=== PATIENT | male | born 1945 | race Caucasian/White ===

== ENCOUNTER 2019-12-21 07:37 | Inpatient (IN) | payer MEDICARE, OTHER, SELFPAY ==
[2019-12-21] VITALS (14 sets, daily range): BP systolic 91–128; BP diastolic 55–82; PULSE 64–98; RESP 12–22; TEMP 36.4–37.1; O2SAT 91–98; BMI 28.0
--- NOTE | 2019-12-21 07:45 | CTR_ITS ---
PROCEDURE INFORMATION: Exam: CT Abdomen And Pelvis With Contrast Exam date and time: 12/21/2019 8:14 AM Age: 74 years old Clinical indication: Other: Gi bleed; Prior surgery; Surgery date: 6+ months; Surgery type: Sigmoid TECHNIQUE: Imaging protocol: Computed tomography of the abdomen and pelvis with intravenous contrast. Radiation optimization: All CT scans at this facility use at least one of these dose optimization techniques: automated exposure control; mA and/or kV adjustment per patient size (includes targeted exams where dose is matched to clinical indication); or iterative reconstruction. Contrast material: VISI 320; Contrast volume: 95 ml; Contrast route: RT AC; COMPARISON: No relevant prior studies available. RADIATION DOSE METRICS: Total DLP: 784.06 mGy-cm FINDINGS: Lungs: Calcified granuloma left upper lobe. 2 mm nodule or branching vessel lateral left lower lung series 2, image 13. This resides at the margin the oblique fissure. Pleural space: Minor pleural parenchymal scarring in the lower lungs. Linear scarring or atelectasis right lower lobe. Minimal interstitial scarring right middle lobe. Punctate pleural based nodular density left lower lobe laterally series 2, image 14. Liver: 0.9 cm hypodensity left hepatic lobe. Gallbladder and bile ducts: Normal. No calcified stones. No ductal dilation. Pancreas: Normal. No ductal dilation. Spleen: Normal. No splenomegaly. Adrenals: Normal. No mass. Kidneys and ureters: Cyst left kidney measures 2.4 cm. Stomach and bowel: Surgical changes at the level of the cecum. Colonic diverticulosis. Suggestion of wall thickening and incomplete distension of the large portion and the majority of the transverse colon with possible component of wall thickening of portions of left colon proximally near the splenic flexure. Appendix: The appendix is not visualized. Intraperitoneal space: Unremarkable. No free air. No significant fluid collection. Vasculature: Prominent atherosclerotic vascular calcification distribution of coronary arteries. Possible coronary stent. Lymph nodes: There are likely a few small subcentimeter lymph nodes low within the pelvis. Bladder: See Reproductive finding. Reproductive: Prostate gland enlargement with slight heterogeneity measures 5.1 x 6.1 cm. Prostate gland extends impression or extension at the bladder base. A lobular area of intravesical soft tissue and slightly nodular abnormality measures 3.7 x 1.5. This could be due to superior prostate gland impression or extension versus intra bladder mucosal abnormality or mass. Bones/joints: Degenerative change of the spine. Soft tissues: Minimal umbilical hernia containing fatty omentum. CT/CT abdomen pelvis w con* [id number] IMPRESSION: 1. Wall thickening with nondistention and loss of haustral pattern of the entire transverse colon and splenic flexure which could be suggestive of nonspecific colitis. 2. Colonic diverticulosis with no definite findings to suggest diverticulitis. 3. Surgical change at the level of the cecum with nonvisualization of the appendix. 4. Prostate gland enlargement. Possible prostate gland impression or extension at the bladder base versus intravesical mucosal abnormality or less likely bladder neoplasm. Correlate with genitourinary consultation. 5. Cyst left kidney.No further workup recommended. 6. Punctate nodular densities left lower lobe.For patients at low risk (minimal or absent history of smoking and of other known risk factors), no routine follow-up is indicated. For patients at high risk (history of smoking or of other known risk factors), consider optional CT at 12 months. (Fred et al., Fleischner Society, 2017) 7. Hypodensity left hepatic lobe.In a low-risk patient, this lesion is most likely to be benign and no further follow-up is recommended. In a high-risk patient, recommend follow-up MRI in 3-6 months (or earlier if warranted by the patient's specific clinical circumstances). Radiation Dose CTDIVOL = (mGy): DLP = 784.06 (mGy-cm)
--- NOTE | 2019-12-21 07:46 | ECG_ITS ---
Measurements Intervals [place] Rate: 63 P: 29 LA: 243 QRS: -11 QRSD: 98 T: 139 QT: 434 QTc: 446 SINUS RHYTHM WITH FIRST DEGREE AV BLOCK MODERATE T-WAVE ABNORMALITY, CONSIDER LATERAL ISCHEMIA No previous ECG available for comparison Electronically Signed On 12-22-2019 20:03:09 CDT by Patsy Leon M.D. [id number]
--- NOTE | 2019-12-21 07:47 | W.ED.GENADLT ---
HPI - General Adult General: Chief complaint: General Medical Stated complaint: GI BLEED Time Seen by Provider: 12/21/19 07:44 Review of Systems General: Reports: 10 or more systems reviewed and unremarkable except in HPI and below GI: Reports: hematochezia PFS ED PFSH: Social History Smoking and tobacco status: never smoked Physical Exam HENMT: HEAD & SCALP: laceration (2.5cm superficial lac to left forehead) Neck/C-Spine: COMMON NORMALS: full ROM, no lymphadenopathy, supple, no meningeal signs and no JVD Resp: COMMON NORMALS: normal respiratory effort, No retractions, No use of accessory muscles and clear to auscultation bilaterally AUSCULTATION: clear to auscultation bilaterally Cardio: COMMON NORMALS: no JVD, regular rate and regular rhythm RATE: regular rate RHYTHM: regular rhythm Neuro: MENINGEAL SIGNS: Yes no meningeal signs Skin: GENERAL SKIN EXAM: pallor Course Vital Signs: Vital signs: Vital Signs Temperature 97.6 F 12/21/19 07:44 Pulse Rate 70 12/21/19 07:44 Respiratory Rate 22 H 12/21/19 07:44 Blood Pressure 107/73 12/21/19 07:44 Pulse Oximetry 95 12/21/19 07:44 [facility] - General Adult Lab Data: Labs: Lab Results 12/21/19 12/21/19 12/21/19 Range/Units 07:25 07:25 07:25 WBC 7.7 (4.0-10.0) 10^3/ uL RBC 4.10 (4.1-5.3) 10^6/u L Hgb 12.5 (11.7-16.6) g/dL Hct 37.6 L (42.0-52.0) % MCV 91.7 (80-94) fL MCH 30.5 (28.0-34.0) pg MCHC 33.2 (30.0-36.0) g/dL RDW 13.0 (12.1-15.1) % Plt Count 197 (130-400) 10^3/c mm MPV 10.4 (7.4-10.4) fL Neut % (Auto) 58.5 % Lymph % (Auto) 29.6 % Atlantic % (Auto) 9.5 % Eos % (Auto) 1.6 % Baso % (Auto) 0.5 % Neut # (Auto) 4.5 (1.8-7.7) 10^3/u L Lymph # (Auto) 2.3 (0.8-4.8) 10^3/u L Atlantic # (Auto) 0.7 (0.2-0.9) 10^3/u L Eos # (Auto) 0.1 (0.0-0.8) 10^3/u L Baso # (Auto) 0.0 (0.0-0.1) 10^3/u L Nucleated RBC % (a uto) 0 % Nucleated RBCs # 0.0 /100WBC PT 13.50 H (10.5-13.3) SECO NDS INR 1.00 (0.8-1.2) APTT 24.3 (23.9-36.7) SECO NDS Sodium 138 (136-145) mmol/L Potassium 4.3 (3.5-5.1) mmol/L Chloride 104 (98-107) mmol/L Carbon Dioxide 24 (22-29) mmol/L Anion Gap 14.3 (5-19) BUN 20 (8-23) mg/dL Creatinine 1.4 H (0.7-1.2) mg/dL Glucose 146 H (65-115) mg/dL Calculated Osmolal ity 285 (285-295) mOsm/k g Lactate (0.5-2.2) mmol/L Calcium 8.1 L (8.5-10.5) mg/dL Total Bilirubin 0.5 (0.15-1.2) mg/dL AST 19 (0-40) U/L ALT 20 (0-41) U/L Alkaline Phosphata se 67 (40-130) IU/L Troponin T Baselin e (0-15) ng/mL Total Protein 5.3 L (6.6-8.7) g/dL Albumin 3.8 (3.5-5.2) g/dL Globulin 1.5 (1.3-4.6) g/dL Blood Type Rho(D) Type Antibody Screen 12/21/19 12/21/19 12/21/19 Range/Units 07:25 08:15 08:15 WBC (4.0-10.0) 10^3/ uL RBC (4.1-5.3) 10^6/u L Hgb (11.7-16.6) g/dL Hct (42.0-52.0) % MCV (80-94) fL MCH (28.0-34.0) pg MCHC (30.0-36.0) g/dL RDW (12.1-15.1) % Plt Count (130-400) 10^3/c mm MPV (7.4-10.4) fL Neut % (Auto) % Lymph % (Auto) % Atlantic % (Auto) % Eos % (Auto) % Baso % (Auto) % Neut # (Auto) (1.8-7.7) 10^3/u L Lymph # (Auto) (0.8-4.8) 10^3/u L Atlantic # (Auto) (0.2-0.9) 10^3/u L Eos # (Auto) (0.0-0.8) 10^3/u L Baso # (Auto) (0.0-0.1) 10^3/u L Nucleated RBC % (a uto) % Nucleated RBCs # /100WBC PT (10.5-13.3) SECO NDS INR (0.8-1.2) APTT (23.9-36.7) SECO NDS Sodium (136-145) mmol/L Potassium (3.5-5.1) mmol/L Chloride (98-107) mmol/L Carbon Dioxide (22-29) mmol/L Anion Gap (5-19) BUN (8-23) mg/dL Creatinine (0.7-1.2) mg/dL Glucose (65-115) mg/dL Calculated Osmolal ity (285-295) mOsm/k g Lactate 2.4 H (0.5-2.2) mmol/L Calcium (8.5-10.5) mg/dL Total Bilirubin (0.15-1.2) mg/dL AST (0-40) U/L ALT (0-41) U/L Alkaline Phosphata se (40-130) IU/L Troponin T Baselin e 8 (0-15) ng/mL Total Protein (6.6-8.7) g/dL Albumin (3.5-5.2) g/dL Globulin (1.3-4.6) g/dL Blood Type O Positive Rho(D) Type Positive Antibody Screen Negative Discharge Plan Discharge Patient Disposition: Admitted As Inpatient Clinical Impression: Acute GI bleeding Condition: Fair Coding Level of Care Code ED Cardiac Care Unit Nurse for Tha Fwd Exam Detailed
[2019-12-21 07:55] LABS: Basophils % 0.5 %; Eosinophils # 0.1 10^3/uL (0.0-0.8); Eosinophils % 1.6 %; Hematocrit 37.6 % (42.0-52.0); Hemoglobin 12.5 g/dL (11.7-16.6); Lymphocytes # 2.3 10^3/uL (0.8-4.8); Lymphocytes % 29.6 %; Mean Corpuscular HGB Conc 33.2 g/dL (30.0-36.0); Mean Corpuscular Hemoglobin 30.5 pg (28.0-34.0); Mean Corpuscular Volume 91.7 fL (80-94); Mean Platelet Volume 10.4 fL (7.4-10.4); Monocytes # 0.7 10^3/uL (0.2-0.9); Monocytes % 9.5 %; Neutrophils # 4.5 10^3/uL (1.8-7.7); Neutrophils % 58.5 %; Nucleated Red Blood Cells % 0 %; Platelet Count 197 10^3/cmm (130-400); White Blood Count 7.7 10^3/uL (4.0-10.0)
[2019-12-21 08:04] LABS: Partial Thromboplastin Time 24.3 SECONDS (23.9-36.7)
[2019-12-21 08:08] LABS: Alanine Aminotransferase 20 U/L (0-41); Albumin Level 3.8 g/dL (3.5-5.2); Alkaline Phosphatase 67 IU/L (40-130); Anion Gap 14.3 (5-19); Aspartate Amino Transferase 19 U/L (0-40); Blood Urea Nitrogen 20 mg/dL (8-23); Calcium 8.1 mg/dL (8.5-10.5); Carbon Dioxide 24 mmol/L (22-29); Chloride 104 mmol/L (98-107); Globulin 1.5 g/dL (1.3-4.6); Glucose 146 mg/dL (65-115); Osmolality Calculated 285 mOsm/kg (285-295); Potassium 4.3 mmol/L (3.5-5.1); Sodium 138 mmol/L (136-145); Total Bilirubin 0.5 mg/dL (0.15-1.2); Total Protein 5.3 g/dL (6.6-8.7)
[2019-12-21 08:10] LABS: Troponin(5th) Baseline 8 ng/mL (0-15)
[2019-12-21 08:33] LABS: Lactate (Lactic Acid level) 2.4 mmol/L (0.5-2.2)
[2019-12-21] MEDS: iodixanol 320 mg/mL 100mL Btl IV (08:43)
--- NOTE | 2019-12-21 08:58 | CTR_ITS ---
PROCEDURE INFORMATION: Exam: CT Head Without Contrast Exam date and time: 12/21/2019 9:15 AM Age: 74 years old Clinical indication: Injury or trauma; Fall; Additional info: Near syncope from gi bleed TECHNIQUE: Imaging protocol: Computed tomography of the head without contrast. Radiation optimization: All CT scans at this facility use at least one of these dose optimization techniques: automated exposure control; mA and/or kV adjustment per patient size (includes targeted exams where dose is matched to clinical indication); or iterative reconstruction. COMPARISON: No relevant prior studies available. RADIATION DOSE METRICS: Total DLP: 869.61 mGy-cm FINDINGS: Brain: Likely chronic left caudate head lacunar infarction. Moderate hypoattenuating foci are noted in the central cerebral, posterior superior periatrial and anterior lateral ventricular periventricular white matter bilaterally. No intracranial hemorrhage. No mass or acute cortical infarction identified. Ventricles: Prominence of the subarachnoid spaces is consistent with the patient's age of 74 years. Bones/joints: Unremarkable. No acute fracture. Sinuses: A cyst/polyp is present in the anterior superior right maxillary sinus. Mastoid air cells: Visualized mastoid air cells are well aerated. Soft tissues: Unremarkable. Vasculature: Atherosclerotic calcifications are present involving the carotid artery siphons bilaterally and the right vertebral artery. Atherosclerotic calcifications are present involving the carotid artery siphons bilaterally. Other findings: Intravascular contrast demonstrated from recent prior abdominal/pelvic CT. CT/CT head wo con* [id number] IMPRESSION: 1. 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 2. Age appropriate supratentorial and infratentorial atrophy. 3. Moderate chronic white matter microvascular ischemic disease. 4. No acute intracranial injury identified. Radiation Dose CTDIVOL = (mGy): DLP = 869.61 (mGy-cm)
--- NOTE | 2019-12-21 09:46 | ECG_ITS ---
Measurements Intervals [place] Rate: 61 P: 42 MI: 231 QRS: -5 QRSD: 97 T: 125 QT: 447 QTc: 454 SINUS RHYTHM WITH FIRST DEGREE AV BLOCK MODERATE T-WAVE ABNORMALITY, CONSIDER LATERAL ISCHEMIA [-0.1+ mV T WAVE IN I/aVL/V5/V6] No previous ECG available for comparison Electronically Signed On 12-21-2019 9:46:02 CDT by Patsy Leon M.D. [id number]
--- NOTE | 2019-12-21 10:04 | P.HP_ITS ---
Providers/Chief Complaint Chief Complaint: GI BLEED History of Present Illness Lester Junior Dr. 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 Patient states since yesterday he has had around 4-5 episodes of bowel movements mixed with bright red blood. Bowel movements are mixed with blood with large bowel movement today morning. After the bowel movement when he was trying to get up from the commode he felt cold clammy had presyncopal event and hit his head at the sink. He denies of having any loss of consciousness. Prior to the event he denies of having any aura, palpitations, chest pain, dizziness, diaphoresis. Patient denies of having any abdominal pain, nausea, vomiting, dyspepsia. He denies of having bleeding from anywhere else. 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 At baseline he denies of having any anginal-like symptoms. He denies of having any chest pain or shortness of breath at rest or on exertion. He denies of excessive NSAID use. He is on aspirin and Plavix. He states he is on both medications as per his own choice. He denies of having any flulike symptoms, cough, sick contacts, recent travels, hiking. He states he has had around 2 or 3 tick bites in the season with last tick bite on 3 weeks ago but denies of having any rash associated with this tick bite. As per the patient he had colonoscopy around 2 years ago which showed benign polyps and were excised. He states he vaguely remembers of having a colonoscopy around 8 years ago when there was suspicion of a mass in the cecum which was later turned out to be benign. On examination patient is lying comfortably in bed with hemodynamic stable denying any active symptoms at present. Review of Systems Const: Denies: fever(s), chills, body aches, change in appetite, malaise, night sweats, diaphoresis, change in sleep pattern, daytime sleepiness or snoring Eyes: Denies: change in vision, blurry vision, photophobia, eye discomfort or eye discharge ENMT: Denies: throat pain, enlarged tonsils, hoarseness, mouth pain, oral sores, dry mouth, tinnitus, nasal congestion or post nasal drip Card: Reports: lightheadedness and pre-syncope; Denies: chest pain, palpitations, irregular heart rhythm, edema, swelling of f eet/ankles, syncope, dyspnea on exertion, orthopnea, leg pain with exertion or acrocyanosis Resp: Denies: dyspnea, productive cough, non-productive cough, wheezing, stridor, pain on inspiration, change in phlegm color, hemoptysis or chest conges tion GI: Denies: abdominal pain, nausea, vomiting, hematemesis, coffee ground emesis, dysphagia, heartburn, diarrhea, constipation, bloating, GI cramping, change in bowel habits, pain on defecation, hematochezia or melena : Denies: flank pain, difficulty urinating, dysuria, urinary frequency, urinary urgency, urinary hesitancy, urinary dribbling, difficulty starting urination, change in urine stream, nocturia or hematuria Musc: Denies: neck pain, back pain, extremity pain, joint pain, joint swelling, joint redness, joint stiffness or limited range of motion Neuro: Denies: headache(s), numbness in extremities, weakness in extremities, sensory changes, lack of coordination, difficulty walking, frequent falls, dizziness, vertigo, confusion, Slurred speech present, difficulty communicating thoughts or seizure-like activity Psych: Denies: anxiety, depression, mood swings, panic attacks, hopelessness or irritability Endo: Denies: polyuria, polydipsia, tired all the time, cold intolerance, excessive sweating, flushing or heat intolerance Ryan/Lymph: Denies: easy bruising or easy bleeding All/Imm: Denies: tongue swelling, facial swelling or acute wheezing Medications/Allergies Home Medications Medication Instructions Recorded Confirmed Last Taken Type amlodipine 5 mg tablet 5 mg PO DAILY 90 Days #90 tab 09/23/19 12/21/19 12/20/19 Rx atorvastatin 20 mg tablet 20 mg PO DAILY 90 Days #90 tab 09/23/19 12/21/19 12/20/19 Rx clopidogrel 75 mg tablet 75 mg PO DAILY 90 Days #90 tab 09/23/19 12/21/19 12/20/19 Rx aspirin 81 mg PO DAILY 12/21/19 12/21/19 12/20/19 History metoprolol tartrate 50 mg PO BID 12/21/19 12/21/19 12/20/19 History Allergies Allergy/AdvReac Type Severity Reaction Status Date / Time No Known Allergies Allergy Unverified 12/21/19 07:46 PFSH Acute PFSH: Medical History (Updated 12/21/19 @ 14:15 by Kennedy Mcclure MD) CAD (coronary artery disease) Dyslipidemia Heart attack Hypertension Old inferior wall myocardial infarction Surgical History (Updated 12/21/19 @ 14:15 by Kennedy Mcclure MD) History of colon surgery History of coronary artery stent placement Hx of appendectomy S/P right coronary artery (RCA) stent placement Social History (Updated 12/21/19 @ 14:16 by Kennedy Mcclure MD) Smoking and tobacco status: never smoked Alcohol intake: never Substance/Drug Use: never Household members: spouse Housing: House Highest education level completed: Professional Degree (MD, DO, JUDITH, DVM, DDS, DPM, etc) Vitals/I&O/Wt Last Vital Signs Temp 97.6 F 12/21/19 07:44 Pulse 70 12/21/19 07:44 Resp 22 H 12/21/19 07:44 BP 107/73 12/21/19 07:44 Pulse Ox 95 12/21/19 07:44 Weight last 48 hrs Weight 86.183 kg Physical Exam Narrative: EXAM NARRATIVE: General: No acute distress, AO x3 HEENT: PERRLA, pupils bilaterally equal and reactive Chest: Normal vesicular breath sounds, no added sounds, equal good air entry bilaterally CVS: S1-S2 regular, no murmurs, no tachycardia, no gallops, no rubs Abdomen: Soft, mild tenderness in periumbilical region, no guarding no rigidity , no organomegaly, bowel sounds present Neuro: No focal deficits, no facial deformity, AO x3, power 5/5 in all limbs Data : 12/21/19 07:25 12/21/19 07:25 A&P Assessment and plan (1) Pre-syncope: Status: Acute (2) Acute GI bleeding: Status: Acute (3) CAD (coronary artery disease): Status: Acute (4) Dyslipidemia: Status: Acute Additional A&P Information 74-year-old gentleman with past medical history of inferior wall AZ post stenting to RCA in 2011 on dual antiplatelets presented to the ER today after having 5-6 episodes of bowel movements mixed with bright red blood leading to presyncope. Acute GI bleed: Most likely lower GI. Hemoglobin is stable at 12.6 with baseline hemoglobin seems to be around more th an 13. Type and screen. Check iron panel, vitamin B12, folate levels, lactate levels. Surgery has been consulted by ER. We will withhold on aspirin and Plavix for now. N.p.o. for now. Check CT abdomen and pelvis to rule out colitis, mass. Check hemoglobin every 12 hourly. Presyncope: Most likely due to acute volume loss from GI bleed. But given his history of inferior wall AZ and recent head injury cannot rule out arrhythmias or stroke. Now patient does not have any neurological signs on examination. Admit to telemetry. Check echocardiogram, troponins and cycle troponins. Check CT head without contrast to rule out any bleed. Fall precautions. For now we will hold off on amlodipine. History of CAD: We will hold off on aspirin and Plavix due to GI bleed. Continue with atorvastatin, low-dose of metoprolol to avoid reaction to tachycardia. Check HbA1c, lipid panel, TSH. Full code. N.p.o. SCDs for DVT prophylaxis no therapeutic DVT prophylaxis due to GI bleed. Attestations Medical Necessity Statement*: More than 2 midnights for acute GI bleed, presyncope Time Spent in Patient Care: Greater than 35 minutes Coding Level of Care Code Acute Professional Caster for Tha Garcia Diagnoses Pre-syncope R55 Acute GI bleeding K92.2 CAD (coronary artery disease) I25.10 Dyslipidemia E78.5
--- NOTE | 2019-12-21 10:09 | USCV_ITS ---
Lester Junior Dr. Age: 74 Gender: M : 1945 Exam Date: 12/21/2019 11:38 Ordering Phys: Kennedy Mcclure MD Technologist: Renee Hastings Exam Location: [facility] [place] Indication: PULM HTN BP: 114 / 65 HR: 75 Rhythm: Sinus Technical Quality: Suboptimal MEASUREMENTS (Male / Female) Normal Values 2D ECHO LV Diastolic Diameter PLAX 4.4 cm 4.2 - 5.9 / 3.9 - 5.3 cm LV Systolic Diameter PLAX 3.0 cm LV Chamber Size 3.7 cm IVS Diastolic Thickness 1.0 cm 0.6 - 1.0 / 0.6 - 0.9 cm IVS Systolic Thickness 1.3 cm LVPW Diastolic Thickness 2.4 cm 0.6 - 1.0 / 0.6 - 0.9 cm LVPW Systolic Thickness 2.3 cm RV Chamber Size 2.2 cm LVOT Diameter 2.1 cm LV Ejection Fraction 2D Teich 60.4 % LV Ejection Fraction MOD 2C 66.3 % LV Ejection Fraction 2C AL 66.3 % LA Diameter 4.6 cm LA Width 2.8 cm LA Height 4.5 cm RA Width 2.7 cm RA Height 4.2 cm Aorta at Sinotubular Diameter 3.2 cm M-MODE LV Diastolic Diameter MM 5.4 cm 4.2 - 5.9 / 3.9 - 5.3 cm LV Systolic Diameter MM 2.9 cm LV Ejection Fraction MM Teich 76.3 % IVS Diastolic Thickness MM 0.9 cm 0.6 - 1.0 / 0.6 - 0.9 cm IVS Systolic Thickness MM 1.1 cm LVPW Diastolic Thickness MM 0.9 cm 0.6 - 1.0 / 0.6 - 0.9 cm LVPW Systolic Thickness MM 1.6 cm Aortic Annulus Diameter 2.9 cm LA Ao Ratio MM 1.6 MV E Point Septal Separation 1.0 cm DOPPLER AV Peak Velocity 150.0 cm/s LVOT Peak Velocity 112.0 cm/s AV Area Cont Eq vti 3.1 cm squared AV Area Cont Eq pk 2.5 cm squared MV Area PHT 3.1 cm squared Mitral E to A Ratio 0.7 MV E' Velocity 12.0 cm/s Mitral E to MV E' Ratio 5.5 Mitral E to LV E' Lateral Ratio 4.9 Mitral E to LV E' Septal Ratio 6.2 TR Peak Velocity 213.0 cm/s TR Peak Gradient 18.1 mmHg TV Peak E Velocity 48.0 cm/s Right Atrial Pressure 3.0 mmHg Pulmonary Artery Systolic Pressu 21.1 mmHg PV Peak Velocity 105.0 cm/s RV Acceleration Time 0.2 s RV Ejection Time 0.3 s RV AcT/ET 0.5 FINDINGS Left Ventricle Normal left ventricular size, systolic function and wall thickness, with no regional wall motion abnormalities. Grade I/IV diastolic dysfunction (abnormal relaxation filling pattern), normal to mildly elevated filling pressures. Left ventricular ejection fraction is estimated at 60 %. Right Ventricle Normal right ventricular size and systolic function. Normal right ventricular systolic pressure. Right Atrium The right atrium is normal in size. Left Atrium Mildly increased left atrial size. Mitral Valve Structurally normal mitral valve without significant stenosis or prolapse. There is no mitral regurgitation. Aortic Valve Structurally normal aortic valve without significant sclerosis or stenosis. There is no aortic regurgitation. Tricuspid Valve Structurally normal tricuspid valve. Trace tricuspid valve regurgitation. Pulmonic Valve Pulmonic valve not well visualized. Pericardium Normal pericardium without effusion. Aorta Normal ascending aorta dimension. CONCLUSIONS Normal left ventricular size, systolic function and wall thickness, with no regional wall motion abnormalities. Grade I/IV diastolic dysfunction (abnormal relaxation filling pattern), normal to mildly elevated filling pressures. Left ventricular ejection fraction is estimated at 60 %. Mildly increased left atrial size. There are no prior echocardiogram studies to compare. Dr. Alirio Miranda MD (Electronically Signed) Final Date: 22 Dec 2019 09:02 S
[2019-12-21 10:25] LABS: Troponin 5 2HR 7.97 ng/mL (0-15)
[2019-12-21 10:53] LABS: Troponin 5 2HR Delta -0.03 ABS# (0-10)
[2019-12-21 11:06] LABS: NT Pro B Type Natriuretic Pept 64 pg/mL (0-125); Thyroid Stimulating Hormone 5.65 uIU/mL (0.27-4.20)
[2019-12-21 11:41] LABS: Lactic Sepsis W/Reflex 1.7 mmol/L (0.5-2.2)
[2019-12-21] MEDS: sodium chloride 0.9% 1,000 ML 100 ML IV (12:18)
[2019-12-21] MEDS: pantoprazole 40 mg SDV IVP ×2 (12:18→21:46)
--- NOTE | 2019-12-21 12:54 | P.CONIM_ITS ---
Providers/Reason For Consult Consulting Physican/Specialty*: Dr. 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 Patient states that he also bumped his head after he felt dizzy. Patient denies any abdominal pain, nausea, vomiting, constipation or diarrhea. No similar episodes in the past. Had a colonoscopy 2 years ago when polyps were removed. Patient states that he also had another colonoscopy 8 to 10 years ago the cecum looked abnormal and he subsequently underwent a laparoscopic cecectomy. Since this morning he has not had any further bloody bowel movements. Review of Systems General: Reports: 10 or more systems reviewed and unremarkable except in HPI and below Meds/Allergies Home Medications and Allergies Home Medications Medication Instructions Recorded Confirmed Last Taken Type amlodipine 5 mg tablet 5 mg PO DAILY 90 Days #90 tab 09/23/19 12/21/19 12/20/19 Rx atorvastatin 20 mg tablet 20 mg PO DAILY 90 Days #90 tab 09/23/19 12/21/19 12/20/19 Rx clopidogrel 75 mg tablet 75 mg PO DAILY 90 Days #90 tab 09/23/19 12/21/19 12/20/19 Rx aspirin 81 mg PO DAILY 12/21/19 12/21/19 12/20/19 History metoprolol tartrate 50 mg PO BID 12/21/19 12/21/19 12/20/19 History Allergies Allergy/AdvReac Type Severity Reaction Status Date / Time No Known Allergies Allergy Unverified 12/21/19 07:46 Current Medications Current Medications Generic Name Dose Route Start Last Admin Trade Name Freq PRN Reason Stop Dose Admin Sodium Chloride 1,000 mls @ 100 mls/hr 12/21/19 09:00 12/21/19 12:18 Sodium Chloride 0.9% IV 100 mls/hr .Q10H CED Administration Pantoprazole Sodium 40 mg 12/21/19 10:27 12/21/19 12:18 Protonix IVP 40 mg Q12H CED Administration PFSH Acute PFSH: Medical History CAD (coronary artery disease) Dyslipidemia Heart attack Hypertension Old inferior wall myocardial infarction Surgical History History of colon surgery History of coronary artery stent placement Hx of appendectomy S/P right coronary artery (RCA) stent placement Social History Smoking and tobacco status: never smoked Alcohol intake: never Substance/Drug Use: never Household members: spouse Housing: House Highest education level completed: Professional Degree (MD, DO, JUDITH, DVM, DDS, DPM, etc) Vitals/I&O/Wt Last Vital Signs Temp 98.7 F 12/21/19 12:00 Pulse 74 12/21/19 12:00 Resp 16 12/21/19 12:00 BP 110/67 12/21/19 12:00 Pulse Ox 97 12/21/19 12:00 Weight last 48 hrs Weight 190 lb Physical Exam Narrative: EXAM NARRATIVE: HEENT: Normocephalic Eye: Sclera /conjunctiva normal Respiratory and chest: Bilateral clear breath sounds on auscultation Cardiovascular: Normal S1 and S2 heart sounds Abdomen: Soft to palpation Neurological: Oriented to place person and time Skin: Intact, no lesions appreciated on gross exam A&P Assessment and plan (1) Acute GI bleedin-year-old gentleman who is currently on aspirin and Plavix for coronary artery stents. Patient has painless hematochezia scan showed suspected colitis and diverticulosis but no evidence of active bleed stable and his hemoglobin is 12. Serial hemoglobin checks Okay to have ice chips If he remains stable and his hemoglobin does not drop significantly then he will need to stop his aspirin and Plavix for a week with a plan for an outpatient colonoscopy in about about 4 weeks given his history of colitis. If he has significant drop in hemoglobin then we will plan for EGD colonoscopy during his inpatient stay Status: Acute Coding Level of Care Code Acute Supervisor Instrument Maintenance for [facility] Diagnoses Acute GI bleeding K92.2
--- NOTE | 2019-12-21 13:46 | ECG_ITS ---
Measurements Intervals [place] Rate: 79 P: 35 NE: 211 QRS: -17 QRSD: 99 T: 90 QT: 403 QTc: 464 SINUS RHYTHM WITH FIRST DEGREE AV BLOCK NONSPECIFIC T-WAVE ABNORMALITY Compared to ECG 12/21/2019 09:51:03 Possible ischemia no longer present T-wave abnormality still present Electronically Signed On 12-22-2019 20:24:46 CDT by Patsy Leon M.D. [email or web address]
[2019-12-21] MEDS: cefTRIAXone 1,000 MG in sodium chloride 0.9% (plus) 50 ML 100 MG IV (13:51)
[2019-12-21] MEDS: metroNIDAZOLE IV 500 MG/100 ML PREMIX 100 MG IV ×2 (13:52→21:46)
[2019-12-21 14:14] LABS: Troponin 5 6HR 6.94 ng/mL (0-15)
[2019-12-21 14:24] LABS: Troponin 5 6HR Delta -1.06 ng/L (0-12)
[2019-12-21 14:35] LABS: Iron 130 ug/dL (59-158); Total Iron Binding Capacity 213 mcg/dl; Unsaturated Iron Binding 83 ug/dL (112-347)
[2019-12-21 14:45] LABS: Free T4 Free Thyroxine 0.92 ng/dL (0.82-1.77); T3 Free 2.5 PG/ML (2.0-4.4)
[2019-12-21] MEDS: sodium chloride 0.9% 1,000 ML 75 ML IV (15:58)
[2019-12-22] VITALS (56 sets, daily range): BP systolic 109–136; BP diastolic 65–90; PULSE 77–127; RESP 14–27; TEMP 36.6–36.7; O2SAT 91–98
[2019-12-22] MEDS: sodium chloride 0.9% 1,000 ML 75 ML IV (00:50)
--- NOTE | 2019-12-22 01:21 | PC.NURSE ---
Decreased O2 sat During sleep 02 saturation 85-88% RA. Pt placed on 3L NC to maintain sats >92%.
[2019-12-22] MEDS: metroNIDAZOLE IV 500 MG/100 ML PREMIX 100 MG IV ×2 (05:01→12:16)
[2019-12-22 05:06] LABS: Basophils # 0.1 10^3/uL (0.0-0.1); Basophils % 0.9 %; Eosinophils # 0.1 10^3/uL (0.0-0.8); Eosinophils % 1.6 %; Hematocrit 32.9 % (42.0-52.0); Lymphocytes % 17.5 %; Mean Corpuscular HGB Conc 33.4 g/dL (30.0-36.0); Mean Corpuscular Hemoglobin 30.6 pg (28.0-34.0); Mean Corpuscular Volume 91.4 fL (80-94); Mean Platelet Volume 10.4 fL (7.4-10.4); Monocytes # 0.5 10^3/uL (0.2-0.9); Monocytes % 8.8 %; Neutrophils # 4.1 10^3/uL (1.8-7.7); Nucleated Red Blood Cells % 0 %; Platelet Count 145 10^3/cmm (130-400); Red Cell Distribution Width 12.9 % (12.1-15.1); White Blood Count 5.8 10^3/uL (4.0-10.0)
[2019-12-22 05:21] LABS: Alanine Aminotransferase 17 U/L (0-41); Albumin Level 3.5 g/dL (3.5-5.2); Alkaline Phosphatase 69 IU/L (40-130); Anion Gap 13.6 (5-19); Aspartate Amino Transferase 17 U/L (0-40); Blood Urea Nitrogen 14 mg/dL (8-23); Calcium 8.4 mg/dL (8.5-10.5); Carbon Dioxide 23 mmol/L (22-29); Chloride 109 mmol/L (98-107); Globulin 2.1 g/dL (1.3-4.6); Glucose 103 mg/dL (65-115); Osmolality Calculated 290 mOsm/kg (285-295); Phosphorus 2.5 mg/dL (2.5-4.5); Potassium 3.6 mmol/L (3.5-5.1); Sodium 142 mmol/L (136-145); Total Bilirubin 0.5 mg/dL (0.15-1.2); Total Protein 5.6 g/dL (6.6-8.7)
[2019-12-22 05:32] LABS: Chol HDL Ratio 4.34 mg/dL (1.0-5.00); Cholesterol 126 mg/dL (0-200); HDL Cholesterol 29 mg/dL (60-100); LDL Cholesterol Calculated 74 mg/dL (50-129); LDL HDL Ratio 2.55 RATIO (0.00-3.22); Triglycerides 115 mg/dL (0-150); VLDL Cholestrol Calculation 23 mg/dL (0-30)
[2019-12-22] MEDS: metoprolol tartrate 25 mg Tablet PO (09:30)
[2019-12-22] MEDS: pantoprazole 40 mg SDV IVP (09:31)
[2019-12-22] MEDS: atorvastatin 40 mg Tablet 20 MG PO (09:37)
--- NOTE | 2019-12-22 09:52 | PM.PN ---
Subjective Subjective: Interval history: Patient has not had any further bleeding overnight, his hemoglobin is stable. Denies any abdominal pain Vitals/I&O/Wt Last Vital Signs Temp 98.0 F 12/22/19 02:00 Pulse 92 12/22/19 06:10 Resp 16 12/22/19 06:10 BP 122/75 12/22/19 06:10 Pulse Ox 95 12/22/19 06:10 12/21/19 12/22/19 12/22/19 22:59 06:59 14:59 Intake Total 220 / 1468.75 1098.75 / 1468.75 100 / 100 Output Total 425 / 725 300 / 725 Balance -205 / 743.75 798.75 / 743.75 100 / 100 Weight last 48 hrs Weight 189 lb 9.6 oz Weight 190 lb Physical Exam Narrative: EXAM NARRATIVE: Abdomen: Soft Data : 12/22/19 11:55 12/22/19 04:20 Micro: Microbiology 12/22/19 03:20 Stool Lactoferrin - Final Stool Occult Blood (FIT) - Final A&P Assessment and plan (1) Hematochezia: Likely secondary to diverticulosis Patient is stable hemodynamically, no evidence of active bleeding. His hemoglobin is stable DC home today with follow-up in 4 weeks to schedule a colonoscopy Status: Acute Attestations Medical Necessity Statement*: GI bleed Coding Level of Care Code Acute Bedspread Seamer for [facility] Diagnoses Hematochezia K92.1
[2019-12-22 12:05] LABS: Hematocrit 33.2 % (42.0-52.0); Hemoglobin 11.2 g/dL (11.7-16.6)
--- NOTE | 2019-12-22 12:08 | PM.DCS ---
Discharge Providers Date of Admission: 12/21/19 09:45 Date of Discharge: December 22, 2019 Attending Provider at Admission: Kennedy Mcclure MD Attending Provider at Discharge: Kennedy Mcclure MD Consults: Surgery: Dr. Serrano. Diagnoses at Discharge Discharge Diagnosis (1) Acute GI bleeding: Status: Acute (2) CAD (coronary artery disease): Status: Acute (3) Dyslipidemia: Status: Acute (4) Pre-syncope: Status: Acute Reason for Visit Reason for Visit: Reason For Visit: GI BLEED Hospital Course Discharge Summary: Lester Junior is a 74 year old male with past medical history of CAD, inferior wall MT in 2011, post PCI to RCA, dyslipidemia who presented to the ER today after having an episode of presyncope. Patient states since yesterday he has had around 4-5 episodes of bowel movements mixed with bright red blood. Bowel movements are mixed with blood with large bowel movement today morning. After the bowel movement when he was trying to get up from the commode he felt cold clammy had presyncopal event and hit his head at the sink. He denies of having any loss of consciousness. Prior to the event he denies of having any aura, palpitations, chest pain, dizziness, diaphoresis. Patient denies of having any abdominal pain, nausea, vomiting, dyspepsia. He denies of having bleeding from anywhere else. 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 At baseline he denies of having any anginal-like symptoms. He denies of having any chest pain or shortness of breath at rest or on exertion. He denies of excessive NSAID use. He is on aspirin and Plavix. He states he is on both medications as per his own choice. He denies of having any flulike symptoms, cough, sick contacts, recent travels, hiking. He states he has had around 2 or 3 tick bites in the season with last tick bite on 3 weeks ago but denies of having any rash associated with this tick bite. As per the patient last colonoscopy was 2 years ago which had benign polyps. Patient was admitted to the ICU for monitoring and his dual antiplatelets were withheld. He was kept n.p.o. at the start and hemoglobin remained stable. During hospitalization patient did not have any further bloody bowel movements. CT abdomen was done which showed possible nonspecific colitis of transverse colon and splenic flexure. For other causes of presyncope CT head was done which was negative for any acute infarct or bleed, his blood work revealed normal electrolytes. He did not have any arrhythmia on the telemetry. Echocardiogram was done which showed a normal EF with grade 1 diastolic dysfunction with no other WMA. He has been discharged in hemodynamically stable condition on a stable hemoglobin with advised to stop Plavix and hold aspirin for other 7 to 10 days. He is also advised to follow-up with his primary care physician within 7 to 10 days and repeat CBC. He is advised to continue ciprofloxacin and Flagyl for 5 more days to finish a course of antibiotics. He is advised to follow-up with Dr. Serrano in 2 weeks for a possible colonoscopy in 4 weeks. Physical Exam Narrative: EXAM NARRATIVE: General: No acute distress, AO x3 HEENT: PERRLA, pupils bilaterally equal and reactive Chest: Normal vesicular breath sounds, no added sounds, equal good air entry bilaterally CVS: S1-S2 regular, no murmurs, no tachycardia, no gallops, no rubs Abdomen: Soft, mild tenderness in periumbilical region, no guarding no rigidity , no organomegaly, bowel sounds present Neuro: No focal deficits, no facial deformity, AO x3, power 5/5 in all limbs Discharge Data Data Completed and Pending: Completed Studies During Hospitalization Category Date Time Status CT abdomen pelvis w con* [id number] Urge nt Cat Scan 12/21/19 07:[address] head wo con* [id number] Urgent Cat Scan 12/21/19 08:58 Completed CV echo complete* [id number] Routine Ultrasound 12/21/19 10:09 Completed Labs from last 24 hours 12/22/19 12/22/19 12/22/19 11:55 04:20 04:20 WBC 5.8 RBC 3.60 L Hgb 11.2 L 11.0 L Hct 33.2 L 32.9 L MCV 91.4 MCH 30.6 MCHC 33.4 RDW 12.9 Plt Count 145 MPV 10.4 Neut % (Auto) 71.0 Lymph % (Auto) 17.5 [place] % (Auto) 8.8 Eos % (Auto) 1.6 Baso % (Auto) 0.9 Neut # (Auto) 4.1 Lymph # (Auto) 1.0 [place] # (Auto) 0.5 Eos # (Auto) 0.1 Baso # (Auto) 0.1 Nucleated RBC % (a uto) 0 Nucleated RBCs # 0.0 Sodium 142 Potassium 3.6 Chloride 109 H Carbon Dioxide 23 Anion Gap 13.6 BUN 14 Creatinine 1.1 Glucose 103 Calculated Osmolal ity 290 Calcium 8.4 L Phosphorus 2.5 Magnesium 2.0 Iron TIBC % Saturation Unsat Iron Binding Total Bilirubin 0.5 AST 17 ALT 17 Alkaline Phosphata se 69 Troponin I 6 Hour Troponin I Hi Sens Del Total Protein 5.6 L Albumin 3.5 Globulin 2.1 Triglycerides Cholesterol LDL Cholesterol, C alc Total VLDL Cholest nessa HDL Cholesterol LDL/HDL Ratio Cholesterol/HDL Ra maria isabel Free T4 Free T3 12/22/19 12/21/19 12/21/19 04:20 13:48 13:48 WBC RBC Hgb Hct MCV MCH MCHC RDW Plt Count MPV Neut % (Auto) Lymph % (Auto) [place] % (Auto) Eos % (Auto) Baso % (Auto) Neut # (Auto) Lymph # (Auto) [place] # (Auto) Eos # (Auto) Baso # (Auto) Nucleated RBC % (a uto) Nucleated RBCs # Sodium Potassium Chloride Carbon Dioxide Anion Gap BUN Creatinine Glucose Calculated Osmolal ity Calcium Phosphorus Magnesium Iron TIBC % Saturation Unsat Iron Binding Total Bilirubin AST ALT Alkaline Phosphata se Troponin I 6 Hour 6.94 Troponin I Hi Sens Del -1.06 L Total Protein Albumin Globulin Triglycerides 115 Cholesterol 126 LDL Cholesterol, C alc 74 Total VLDL Cholest nessa 23 HDL Cholesterol 29 L LDL/HDL Ratio 2.55 Cholesterol/HDL Ra maria isabel 4.34 Free T4 0.92 Free T3 2.5 12/21/19 07:25 WBC RBC Hgb Hct MCV MCH MCHC RDW Plt Count MPV Neut % (Auto) Lymph % (Auto) [place] % (Auto) Eos % (Auto) Baso % (Auto) Neut # (Auto) Lymph # (Auto) [place] # (Auto) Eos # (Auto) Baso # (Auto) Nucleated RBC % (a uto) Nucleated RBCs # Sodium Potassium Chloride Carbon Dioxide Anion Gap BUN Creatinine Glucose Calculated Osmolal ity Calcium Phosphorus Magnesium Iron 130 TIBC 213 % Saturation 61.0 H Unsat Iron Binding 83 L Total Bilirubin AST ALT Alkaline Phosphata se Troponin I 6 Hour Troponin I Hi Sens Del Total Protein Albumin Globulin Triglycerides Cholesterol LDL Cholesterol, C alc Total VLDL Cholest nessa HDL Cholesterol LDL/HDL Ratio Cholesterol/HDL Ra maria isabel Free T4 Free T3 Vitals: Last Vital Signs Temp 98.0 F 12/22/19 02:00 Pulse 92 12/22/19 06:10 Resp 16 12/22/19 06:10 BP 122/75 12/22/19 06:10 Pulse Ox 95 12/22/19 06:10 Discharge Plan Discharge Patient Disposition: Home, Self-Care Condition: Fair Prescriptions: New ciprofloxacin HCl [Cipro] 500 mg tablet 500 mg PO BID Qty: 10 RF: 0 metronidazole [Flagyl] 500 mg tablet 500 mg PO Q8H 5 Days Qty: 15 RF: 0 pantoprazole [Protonix] 40 mg tablet,delayed release (DR/EC) 40 mg PO BID 10 Days Qty: 20 RF: 0 Continued atorvastatin 20 mg tablet 20 mg PO DAILY 90 Days Qty: 90 RF: 3 metoprolol tartrate 25 mg tablet 50 mg PO BID RF: 0 Held amlodipine 5 mg tablet 5 mg PO DAILY 90 Days Qty: 90 RF: 3 Hold Instructions: Resume on 01/04/20. If blood pressures more than systolic 140/80. aspirin 81 mg Tablet,Delayed Release (Dr/Ec) 81 mg PO DAILY RF: 0 Hold Instructions: Resume on 01/01/20. Discontinued clopidogrel 75 mg tablet 75 mg PO DAILY 90 Days Qty: 90 RF: 3 Discharge Orders: Discharge Order (Routine); Ordered 12/22/19 Ordered By: Kennedy Mcclure Referrals: Miguel A Serrano MD [Physician] - 2 weeks Discharge Diet: GI Soft Discharge Activity: Resume usual activity Activity Restrictions/Additional Instructions: Please hold off on aspirin and Plavix for now. Start aspirin again in 7 to 10 days. Before starting aspirin please check CBC with your primary care physician. Given the GI bleed and colitis on the CT scan please do not take Plavix anymore. For now please do not take amlodipine. Please maintain blood pressure diary. If systolic blood pressures are more than 130/80 take metoprolol and if they continue to remain higher then can resume amlodipine at that point. Please take antibiotics as prescribed for 5 more days to finish a course of antibiotics. Please follow-up with Dr. Serrano in around 2 weeks for a possible colonoscopy in 4 weeks from now. Discharge Attestations Time Spent in Discharge Care*: greater than 30 min Specific Discharge Activities: Specific discharge activities: educating patient, discussing with pcp/other providers, documenting/other paperwork and evaluating patient/reviewing data Status at Discharge: Cognitive status at discharge: cognitively intact, Behavioral status at discharge: cooperative, Functional status at discharge: independent ambulation Overall status at discharge: patient is back to baseline Quality Metrics Clinical Quality Measures During this hospital stay, did patient experience: None Coding Level of Care Code Acute Distribution Supervisor for [facility] Diagnoses Acute GI bleeding K92.2 CAD (coronary artery disease) I25.10 Dyslipidemia E78.5 Pre-syncope R55
[2019-12-22] MEDS: cefTRIAXone 1,000 MG in sodium chloride 0.9% (plus) 50 ML 100 MG IV (12:14)
== END 2019-12-22 14:13 | disposition home or self-care (01) | DRG 378 ==
LOC: ER 09:10 → ICU 10:04 → CSU 23:46 → ICU 23:47
PROVIDERS: Family Medicine; Admitting Provider Student in an Organized Health Care Education/Training Program; Visit Provider Student in an Organized Health Care Education/Training Program
DX: K92.2 Gastrointestinal hemorrhage, unspecified (principal); N17.9 Acute kidney failure, unspecified; I25.10 Atherosclerotic heart disease of native coronary artery without angina pectoris; I10 Essential (primary) hypertension; E78.5 Hyperlipidemia, unspecified; I25.2 Old myocardial infarction; Z95.5 Presence of coronary angioplasty implant and graft; Z79.82 Long term (current) use of aspirin; Z79.02 Long term (current) use of antithrombotics/antiplatelets; E86.0 Dehydration
CPT/HCPCS: 12345; 36415; 45378; 70450; 74177; 80048; 80053; 80061; 81003; 82274; 83540; 83550; 83605; 83630; 83690; 83735; 83880; 84100; 84439; 84443; 84481; 84484; 85014; 85018; 85025; 85610; 85730; 86850; 86900; 86920; 87493; 87506; 93005; 93306; 94664; 96375; 99283; C9113; G0378; J0696; J2704; J3490; J7030; Q9967; S0030

== ENCOUNTER 2019-12-23 08:31 | Inpatient (IN) | payer MEDICARE, OTHER, SELFPAY ==
[2019-12-23] VITALS (8 sets, daily range): BP systolic 100–145; BP diastolic 62–91; PULSE 70–88; RESP 16–20; TEMP 36.6–36.9; O2SAT 94–97; BMI 27.8
--- NOTE | 2019-12-23 09:14 | W.ED.GIBLEED ---
HPI - GI Bleed General: Chief complaint: GI Bleed Stated complaint: RECTAL BLEEDING Time Seen by Provider: 12/23/19 08:49 History of Present Illness: HPI Narrative: 77-year-old male seen 2 days ago for rectal bleeding. He was discharged yesterday with a hemoglobin hematocrit of 11 and 32 respectively. This morning he had a large single bloody bowel movement as he only bowel noise had since discharge. Patient reports that 2 years ago he had a colonoscopy that showed polyps that were removed and he was told to have a 3-year follow-up. He was to have a follow-up with Dr. Serrano in a few weeks for another colonoscopy. When he was hospitalized recently he did not require transfusion. MD complaint: gross hematochezia Onset (ago): day(s) Relieving factors: none Exacerbating factors: none Context: history of GI bleed Associated symptoms: Reports syncope (2 days ago when he was initially admitted); Denies abdominal pain, easy bruising, epistaxis, fever(s), headache(s), malaise, nausea, other bleeding, rash, vomiting or weakness Treatments Prior to Arrival: none Review of Systems Const: Denies: fever(s) or malaise ENMT: Denies: epistaxis Card: Reports: syncope (2 days ago when he was initially admitted) Resp: Denies: dyspnea, productive cough or non-productive cough GI: Denies: abdominal pain, nausea or vomiting : Denies: flank pain, dysuria, urinary frequency or urinary urgency Skin/Breast: Denies: rash Neuro: Denies: headache(s) Ryan/Lymph: Denies: easy bruising PFSH ED PFSH: Medical History (Updated 12/23/19 @ 12:13 by Gian Landers DO) CAD (coronary artery disease) Dyslipidemia Heart attack Hypertension Old inferior wall myocardial infarction Surgical History (Updated 12/23/19 @ 11:24 by Eve Pichardo DO) History of colon surgery Reported resection of appendix and cecum due to benign changes History of coronary artery stent placement Stent placement x2 in 2011 History of orthopedic surgery Left meniscectomy, arthroscopic Hx of appendectomy S/P right coronary artery (RCA) stent placement Family History (Updated 12/23/19 @ 11:26 by Eve Pichardo DO) Mother , at the age of 99 Cancer, Onset Age: 92 Colon cancer Father , at the age of 87 Cancer, Onset Age: 70 Colon cancer Grandmother DVT (deep venous thrombosis) Social History (Updated 12/23/19 @ 11:27 by Eve Pichardo DO) Smoking and tobacco status: never smoked Alcohol intake: current Alcohol intake frequency: few times a month Household members: spouse Housing: House Highest education level completed: Professional Degree (, , JUDITH, DVM, DDS, DPM, etc) Physical Exam Const: COMMON NORMALS: no acute distress GENERAL APPEARANCE: cooperative and comfortable ORIENTATION/CONSCIOUSNESS: Yes awake, Yes oriented to person, Yes oriented to place and Yes oriented to time HENMT: COMMON NORMALS: normocephalic, atraumatic, hearing grossly normal bilaterally, external ears normal, moist oral mucous membranes and oropharynx normal; TM's not normal bilaterally and nasal mucous membranes&turbinates abnorm HEAD & SCALP: normocephalic and atraumatic NOSE: nasal mucous membranes&turbinates abnorm EXTERNAL EAR: Yes external ears normal TYMPANIC MEMBRANE: TM(s) not normal bilaterally Eye: COMMON NORMALS: Equal, round and reactive pupils present, EOMs intact bilaterally, conjunctivae normal and no scleral icterus CONJUNCTIVA: Yes conjunctivae normal PUPIL: Yes Equal, round and reactive pupils present Neck/C-Spine: COMMON NORMALS: full ROM, no lymphadenopathy, supple and no JVD Lymph: LYMPHATIC: no lymphadenopathy noted and no lymphedema noted Resp: COMMON NORMALS: normal respiratory effort, No retractions, No use of accessory muscles and clear to auscultation bilaterally AUSCULTATION: clear to auscultation bilaterally Cardio: COMMON NORMALS: no JVD, regular rate, regular rhythm and No murmurs present (Cardio) RATE: regular rate RHYTHM: regular rhythm GI: COMMON NORMALS: Soft to palpation and No hepatosplenomegaly present AUSCULTATION: Yes normoactive bowel sounds PALPATION: Yes Soft to palpation, No Tenderness to palpation present (GI), No Guarding due to palpation present (GI) and Yes No hepatosplenomegaly present Extremity: COMMON NORMALS: normal to inspection, capillary refill normal, no clubbing, cyanosis or edema, no calf tenderness and no pedal edema Neuro: SENSORIUM/ORIENTATION: Yes oriented to person, Yes oriented to place and Yes oriented to time Skin: COMMON NORMALS: no rashes or lesions noted GENERAL SKIN EXAM: no rashes or lesions noted Course Vital Signs: Vital signs: Vital Signs Temperature 98.4 F 12/23/19 08:36 Pulse Rate 85 12/23/19 11:48 Respiratory Rate 16 12/23/19 11:48 Blood Pressure 121/83 12/23/19 11:48 Pulse Oximetry 95 12/23/19 11:48 MDM - GI Bleed MDM Narrative: Medical decision making narrative: Archie Dr. Serrano in with Dr. Pichardo. Initially the plan to discharge patient home repeat hemoglobin in the morning and do a colonoscopy in 2 days at that point he be 5 days off of his Plavix. I went discussed this with the patient in the interim from my exam to then he had had another large bloody bowel movement he was uncomfortable treating as an outpatient at this point. We will put him on observation discussed Dr. Serrano again he may consider doing the colonoscopy tomorrow Dr. Pichardo will be the attending. Lab Data: Labs: Lab Results 12/23/19 12/23/19 12/23/19 Range/Units 08:50 08:50 08:50 WBC 5.0 (4.0-10.0) 10^3/ uL RBC 3.57 L (4.1-5.3) 10^6/u L Hgb 11.2 L (11.7-16.6) g/dL Hct 32.6 L (42.0-52.0) % MCV 91.3 (80-94) fL MCH 31.4 (28.0-34.0) pg MCHC 34.4 (30.0-36.0) g/dL RDW 13.1 (12.1-15.1) % Plt Count 163 (130-400) 10^3/c mm MPV 10.5 H (7.4-10.4) fL Neut % (Auto) 62.1 % Lymph % (Auto) 26.5 % [place] % (Auto) 8.6 % Eos % (Auto) 2.0 % Baso % (Auto) 0.6 % Neut # (Auto) 3.1 (1.8-7.7) 10^3/u L Lymph # (Auto) 1.3 (0.8-4.8) 10^3/u L [place] # (Auto) 0.4 (0.2-0.9) 10^3/u L Eos # (Auto) 0.1 (0.0-0.8) 10^3/u L Baso # (Auto) 0.0 (0.0-0.1) 10^3/u L Nucleated RBC % (a uto) 0 % Nucleated RBCs # 0.0 /100WBC PT 13.30 (10.5-13.3) SECO NDS INR 0.98 (0.8-1.2) APTT 27.7 (23.9-36.7) SECO NDS Sodium 142 (136-145) mmol/L Potassium 3.7 (3.5-5.1) mmol/L Chloride 108 H (98-107) mmol/L Carbon Dioxide 24 (22-29) mmol/L Anion Gap 13.7 (5-19) BUN 12 (8-23) mg/dL Creatinine 1.0 (0.7-1.2) mg/dL Glucose 125 H (65-115) mg/dL Calculated Osmolal ity 292 (285-295) mOsm/k g Lactate (0.5-2.2) mmol/L Calcium 8.9 (8.5-10.5) mg/dL Total Bilirubin 0.4 (0.15-1.2) mg/dL AST 26 (0-40) U/L ALT 19 (0-41) U/L Alkaline Phosphata se 72 (40-130) IU/L Total Protein 6.3 L (6.6-8.7) g/dL Albumin 3.9 (3.5-5.2) g/dL Globulin 2.4 (1.3-4.6) g/dL Lipase 42 (13-60) U/L 12/23/19 Range/Units 09:23 WBC (4.0-10.0) 10^3/ uL RBC (4.1-5.3) 10^6/u L Hgb (11.7-16.6) g/dL Hct (42.0-52.0) % MCV (80-94) fL MCH (28.0-34.0) pg MCHC (30.0-36.0) g/dL RDW (12.1-15.1) % Plt Count (130-400) 10^3/c mm MPV (7.4-10.4) fL Neut % (Auto) % Lymph % (Auto) % [place] % (Auto) % Eos % (Auto) % Baso % (Auto) % Neut # (Auto) (1.8-7.7) 10^3/u L Lymph # (Auto) (0.8-4.8) 10^3/u L [place] # (Auto) (0.2-0.9) 10^3/u L Eos # (Auto) (0.0-0.8) 10^3/u L Baso # (Auto) (0.0-0.1) 10^3/u L Nucleated RBC % (a uto) % Nucleated RBCs # /100WBC PT (10.5-13.3) SECO NDS INR (0.8-1.2) APTT (23.9-36.7) SECO NDS Sodium (136-145) mmol/L Potassium (3.5-5.1) mmol/L Chloride (98-107) mmol/L Carbon Dioxide (22-29) mmol/L Anion Gap (5-19) BUN (8-23) mg/dL Creatinine (0.7-1.2) mg/dL Glucose (65-115) mg/dL Calculated Osmolal ity (285-295) mOsm/k g Lactate 1.3 (0.5-2.2) mmol/L Calcium (8.5-10.5) mg/dL Total Bilirubin (0.15-1.2) mg/dL AST (0-40) U/L ALT (0-41) U/L Alkaline Phosphata se (40-130) IU/L Total Protein (6.6-8.7) g/dL Albumin (3.5-5.2) g/dL Globulin (1.3-4.6) g/dL Lipase (13-60) U/L Discharge Plan Discharge Patient Disposition: Admitted As Inpatient Admit Provider: Eve Pichardo Clinical Impression: Rectal bleeding Condition: Stable Interventions: ED Discharge Assessment Last Done: 12/23/19 11:41 ED Charges Last Done: 12/23/19 11:41 Discharge Date/Time: 12/23/19 12:00 Coding Level of Care Code ED Instructor Weaving for Chg Fwd Exam Comprehensive
[2019-12-23 09:29] LABS: Basophils % 0.6 %; Eosinophils # 0.1 10^3/uL (0.0-0.8); Hematocrit 32.6 % (42.0-52.0); Hemoglobin 11.2 g/dL (11.7-16.6); Lymphocytes # 1.3 10^3/uL (0.8-4.8); Lymphocytes % 26.5 %; Mean Corpuscular HGB Conc 34.4 g/dL (30.0-36.0); Mean Corpuscular Hemoglobin 31.4 pg (28.0-34.0); Mean Corpuscular Volume 91.3 fL (80-94); Mean Platelet Volume 10.5 fL (7.4-10.4); Monocytes # 0.4 10^3/uL (0.2-0.9); Monocytes % 8.6 %; Neutrophils # 3.1 10^3/uL (1.8-7.7); Neutrophils % 62.1 %; Nucleated Red Blood Cells % 0 %; Platelet Count 163 10^3/cmm (130-400); Red Blood Count 3.57 10^6/uL (4.1-5.3); Red Cell Distribution Width 13.1 % (12.1-15.1)
[2019-12-23 09:34] LABS: INR 0.98 (0.8-1.2)
[2019-12-23 09:35] LABS: Partial Thromboplastin Time 27.7 SECONDS (23.9-36.7)
[2019-12-23 09:48] LABS: Alanine Aminotransferase 19 U/L (0-41); Albumin Level 3.9 g/dL (3.5-5.2); Alkaline Phosphatase 72 IU/L (40-130); Anion Gap 13.7 (5-19); Aspartate Amino Transferase 26 U/L (0-40); Blood Urea Nitrogen 12 mg/dL (8-23); Calcium 8.9 mg/dL (8.5-10.5); Carbon Dioxide 24 mmol/L (22-29); Chloride 108 mmol/L (98-107); Globulin 2.4 g/dL (1.3-4.6); Glucose 125 mg/dL (65-115); Lipase 42 U/L (13-60); Osmolality Calculated 292 mOsm/kg (285-295); Potassium 3.7 mmol/L (3.5-5.1); Sodium 142 mmol/L (136-145); Total Bilirubin 0.4 mg/dL (0.15-1.2); Total Protein 6.3 g/dL (6.6-8.7)
[2019-12-23 09:50] LABS: Lactate (Lactic Acid level) 1.3 mmol/L (0.5-2.2)
--- NOTE | 2019-12-23 11:17 | P.HP_ITS ---
Providers/Chief Complaint Admitting Physician: Eve Pichardo DO Chief Complaint: RECTAL BLEEDING History of Present Illness Lester Junior is a 74 year old male that presented to the emergency department today for continued rectal bleeding. He was recently admitted and monitored in the hospital and discharged yesterday due to concern for GI bleed. He was noted to have rectal bleeding at that time and his aspirin and Plavix we re placed on hold. He did not have any further bleeding episodes while in the hospital and was feeling stable at time of discharge. He reported that he discharged home was feeling well then overnight and into this morning he began having continued bright red blood per rectum. He denies any rectal pain, denies any abdominal pain but reports that his bowels have been making more noise than normal. Patient reports that he has not had any medications today. He has been taking the antibiotics that were prescribed for concern of colitis. He denies any fevers or chills, no sick contacts. Patient denies having any hard stools that precipitated him having blood in his stool, no hemorrhoidal type pain. Patient does have a strong family history of colon cancer in his mother and his father and had a benign cecum resection several years ago. Patient was seen and evaluated in the emergency department due to concern for rectal bleeding he was placed on observation. Hemoglobin was stable from yesterday. But patient did have further bright red blood per rectum while in the ED. He had a presyncopal episode leading up to his previous hospital stay, however reports that he has not had any further symptoms of this. Review of Systems Const: Denies: fever(s) or chills Eyes: Denies: change in vision ENMT: Denies: nasal congestion Card: Denies: chest pain, palpitations or edema Resp: Denies: dyspnea, productive cough or hemoptysis GI: Reports: hematochezia; Denies: abdominal pain, nausea, vomiting, dysphagia, heartburn, diarrhea, constipation, GI cramping, pain on defecation, rectal pain or melena : Denies: dysuria or hematuria Musc: Denies: extremity pain or muscle cramps Skin/Breast: Denies: rash or new lesions Neuro: Denies: headache(s) or dizziness Psych: Denies: anxiety or depression Endo: Denies: polyuria or hot flashes Ryan/Lymph: Denies: easy bruising or easy bleeding Medications/Allergies Home Medications Medication Instructions Recorded Confirmed Last Taken Type amlodipine 5 mg tablet 5 mg PO DAILY 90 Days #90 tab 09/23/19 12/23/19 12/22/19 Rx atorvastatin 20 mg tablet 20 mg PO DAILY 90 Days #90 tab 09/23/19 12/23/19 12/22/19 Rx aspirin 81 mg PO DAILY 12/21/19 12/23/19 12/20/19 History metoprolol tartrate 50 mg PO BID 12/21/19 12/23/19 12/22/19 History ciprofloxacin HCl [Cipro] 500 mg PO BID #10 tab 12/22/19 12/23/19 Unknown Rx metronidazole [Flagyl] 500 mg PO Q8H 5 Days #15 tab 12/22/19 12/23/19 Unknown Rx pantoprazole [Protonix] 40 mg PO BID 10 Days #20 tab 12/22/19 12/23/19 Unknown Rx clopidogrel 75 mg PO DAILY 12/23/19 12/23/19 12/22/19 History Allergies Allergy/AdvReac Type Severity Reaction Status Date / Time No Known Allergies Allergy Unverified 12/21/19 07:46 PFSH Acute PFSH: Medical History (Updated 12/23/19 @ 12:13 by Gian Landers DO) CAD (coronary artery disease) Dyslipidemia Heart attack Hypertension Old inferior wall myocardial infarction Surgical History (Updated 12/23/19 @ 11:24 by Eve Pichardo DO) History of colon surgery Reported resection of appendix and cecum due to benign changes History of coronary artery stent placement Stent placement x2 in 2011 History of orthopedic surgery Left meniscectomy, arthroscopic Hx of appendectomy S/P right coronary artery (RCA) stent placement Family History (Updated 12/23/19 @ 11:26 by Eve Pichardo DO) Mother , at the age of 99 Cancer, Onset Age: 92 Colon cancer Father , at the age of 87 Cancer, Onset Age: 70 Colon cancer Grandmother DVT (deep venous thrombosis) Social History (Updated 12/23/19 @ 11:27 by Eve Pichardo DO) Smoking and tobacco status: never smoked Alcohol intake: current Alcohol intake frequency: few times a month Household members: spouse Housing: House Highest education level completed: Professional Degree (, , JUDITH, DVM, DDS, DPM, etc) Vitals/I&O/Wt Last Vital Signs Temp 98.4 F 12/23/19 08:36 Pulse 88 12/23/19 10:05 Resp 18 12/23/19 10:05 BP 134/86 12/23/19 10:05 Pulse Ox 97 12/23/19 10:05 Weight last 48 hrs Weight 85.729 kg Physical Exam Const: COMMON NORMALS: patient oriented x3 and alert GENERAL APPEARANCE: cooperative ORIENTATION/CONSCIOUSNESS: Yes awake, Yes oriented to person, Yes oriented to place and Yes oriented to time HENMT: COMMON NORMALS: normocephalic and atraumatic HEAD & SCALP: normoceph alic and atraumatic Eye: COMMON NORMALS: Equal, round and reactive pupils present PUPIL: Yes Eq ual, round and reactive pupils present Neck/C-Spine: COMMON NORMALS: supple GENERAL: Yes normal visual inspection Resp: COMMON NORMALS: normal respiratory effort and clear to auscultation bilaterally EFFORT & INSPECTION: Yes able to speak in complete sentences AUSCULTATION: clear to auscultation bilaterally, no rhonchi and no wheezes Cardio: COMMON NORMALS: regular rate, regular rhythm and No murmurs present (Cardio) RATE: regular rate RHYTHM: regular rhythm GI: COMMON NORMALS: Soft to palpation and non-tender INSPECTION: No abdominal distension AUSCULTATION: Yes normoactive bowel sounds PALPATION: Yes Soft to palpation Extremity: COMMON NORMALS: no clubbing, cyanosis or edema and no calf tenderness Neuro: COMMON NORMALS: patient oriented x3, CN's II-XII intact bilaterally, moves all extremities and no focal motor deficits SENSORIUM/ORIENTATION: Yes alert, Yes oriented to person, Yes oriented to place and Yes oriented to time SPEECH: speech normal Psych: COMMON NORMALS: mental status grossly normal and cooperative Skin: COMMON NORMALS: no rashes or lesions noted Data : 12/24/19 06:28 12/24/19 03:26 A&P Assessment and plan (1) Rectal bleeding: Bright red blood per rectum, this has continued despite patient's discontinuation of aspirin and Plavix ER physician discussed with Dr. Serrano for consultation. Will follow up with recommendations and assistance in patient's care. Clear liquid diet, nothing red or orange Patient to be prepped for colonoscopy, likely tomorrow, will follow up with surgery recommendations Continue to monitor serial H&H every 8 hours. Hemoglobin stable at this time at 11.2. Status: Acute (2) CAD (coronary artery disease): With a history of stent placement in 2011 Aspirin and Plavix on hold at this time due to concern for rectal bleeding as above. Continue on metoprolol and statin Status: Acute (3) Dyslipidemia: Continue on statin Status: Acute (4) Hypertension: Amlodipine discontinued at this time due to concern for GI bleed Patient has not had his home metoprolol, will restart at this time Status: Acute Additional A&P Information Colitis: Patient recently started on Cipro and Flagyl, will continue DVT prophylaxis: SCDs Diet: Clear liquid diet, no red Attestations Medical Necessity Statement*: Observation due to rectal bleeding, expected stay less than 2 midnights Coding Level of Care Code Acute Supervisor Photoengraving for g Fwd Exam Comprehensive Diagnoses Rectal bleeding K62.5 CAD (coronary artery disease) I25.10 Dyslipidemia E78.5 Hypertension I10
[2019-12-23] MEDS: metoprolol tartrate 25 mg Tablet 50 MG PO ×2 (13:11→18:15)
[2019-12-23] MEDS: pantoprazole DR 40 mg Tablet PO ×2 (13:12→18:14)
[2019-12-23] MEDS: metroNIDAZOLE 500 MG Tablet PO ×2 (13:12→20:40)
[2019-12-23] MEDS: D5-NS 0.45% + KCL 20 mEq 20 MEQ/1,000 ML BAG 100 MEQ IV (13:31)
[2019-12-23 14:00] LABS: Hematocrit 29.8 % (42.0-52.0)
--- NOTE | 2019-12-23 14:49 | PC.NURSE ---
Rcvd consent on patient for colonoscopy with possible biopsy possible polypectomy. placed consent in file.
[2019-12-23] MEDS: magnesium citrate Btl 296 mL PO ×2 (16:38→20:40)
[2019-12-23] MEDS: bisacodyl 5 mg Tablet 40 MG PO (16:38)
[2019-12-23] MEDS: ciprofloxacin 500 mg Tablet PO (18:14)
[2019-12-23 20:17] LABS: Hematocrit 27.6 % (42.0-52.0); Hemoglobin 9.3 g/dL (11.7-16.6)
[2019-12-23] MEDS: sodium chloride 0.9% 1,000 ML 30 ML IV (22:35)
[2019-12-24] VITALS (23 sets, daily range): BP systolic 83–150; BP diastolic 54–107; PULSE 61–104; RESP 16–28; TEMP 36.4–37; O2SAT 93–100
[2019-12-24] MEDS: sodium chloride 0.9% 1,000 ML 999 ML IV ×2 (00:47→03:56)
[2019-12-24 00:54] LABS: Hematocrit 31.4 % (42.0-52.0); Hemoglobin 10.6 g/dL (11.7-16.6)
[2019-12-24 02:53] LABS: Add Urine Microscopic? NO
[2019-12-24 03:16] LABS: Bilirubin Urine Neg (NEGATIVE); Blood Urine Neg (Negative); Glucose Urine UA Norm (Normal); Ketones Urine Negative (Negative); Leukocyte Esterase Urine Negative (Negative); Nitrate Urine Negative (Negative); Protein Urine Neg (Negative); Specific Gravity, Urine 1.025 (1.005-1.030); Urine Appearance Clear (CLEAR); Urine Color Yellow (Yellow); Urobilinogen Urine Norm (Negative); pH Urine 5 (5-7)
--- NOTE | 2019-12-24 03:45 | ECG_ITS ---
Measurements Intervals [place] Rate: 65 P: NE: 0 QRS: -12 QRSD: 110 T: 145 QT: 436 QTc: 456 Sinus RHYTHM MODERATE T-WAVE ABNORMALITY, CONSIDER LATERAL ISCHEMIA [-0.1+ mV T WAVE IN I/aVL/V5/V6] Compared to ECG 12/21/2019 17:31:33 Possible ischemia now present First degree AV block no longer present T-wave abnormality still present Electronically Signed On 12-24-2019 15:43:00 CDT by Alirio Miranda M.D. [email or web address]
[2019-12-24 03:46] LABS: Basophils % 0.6 %; Eosinophils # 0.1 10^3/uL (0.0-0.8); Eosinophils % 0.9 %; Hematocrit 29.4 % (42.0-52.0); Hemoglobin 9.7 g/dL (11.7-16.6); Lymphocytes # 0.9 10^3/uL (0.8-4.8); Lymphocytes % 13.1 %; Mean Corpuscular Hemoglobin 30.6 pg (28.0-34.0); Mean Corpuscular Volume 92.7 fL (80-94); Mean Platelet Volume 10.4 fL (7.4-10.4); Monocytes # 0.5 10^3/uL (0.2-0.9); Monocytes % 8.1 %; Neutrophils # 5.1 10^3/uL (1.8-7.7); Neutrophils % 77.1 %; Nucleated Red Blood Cells % 0 %; Platelet Count 160 10^3/cmm (130-400); Red Blood Count 3.17 10^6/uL (4.1-5.3); Red Cell Distribution Width 13.1 % (12.1-15.1); White Blood Count 6.6 10^3/uL (4.0-10.0)
[2019-12-24 04:00] LABS: Anion Gap 12.5 (5-19); Blood Urea Nitrogen 10 mg/dL (8-23); Calcium 8.6 mg/dL (8.5-10.5); Carbon Dioxide 21 mmol/L (22-29); Chloride 110 mmol/L (98-107); Glucose 126 mg/dL (65-115); Osmolality Calculated 288 mOsm/kg (285-295); Potassium 3.5 mmol/L (3.5-5.1); Sodium 140 mmol/L (136-145)
--- NOTE | 2019-12-24 04:05 | P.EN_ITS ---
Event Note Event Note: Patient hypotensive 83/54mmhg at midnight along with c/o diahoresis and light headedness--> received 1L IVF bolus after which BP improved to 127/72 at 2 am. Again at 4am, BP drop to 76/45mmg with c/o light headedness. He has had 3-5 episodes of bloody BM since taking colonoscopy prep. Repeat IVF 1 L bolus, increase maintainence fluids to 150cc/hr. Hb trend 10-->9.3 --> 10.6--> 9.7. Next check in 3 hrs, unless clinical change to warrant sooner. If continues to be hypotensive after the 2nd bolus, will plan to transfuse with PRBC. Event Notes Attestations Time Spent in Patient Care: 16 - 35 minutes
[2019-12-24] MEDS: sodium chloride 0.9% 1,000 ML 150 ML IV ×2 (04:56→11:50)
[2019-12-24 06:35] LABS: Hematocrit 28.6 % (42.0-52.0); Hemoglobin 9.5 g/dL (11.7-16.6)
--- NOTE | 2019-12-24 06:35 | PC.NURSE ---
Patient received from med-surg to ICU-11. Dr Roach at bedside, states that 1 unit PRBCs should be given if repeat Hgb drops below 7. Patient in no apparent distress, VSS.
--- NOTE | 2019-12-24 07:59 | PM.PN ---
Subjective Subjective: Interval history: Patient resting in bed at time of exam this morning. He noted that his lightheadedness and dizziness had improved. He stated that he felt dizzy and lightheaded overnight with his hypotensive episode. Denied any chest pain, no heaviness in his chest, no palpitations or shortness of breath. Patient reported bloody bowel movements with prep yesterday. Nurse reported that his last bowel movement had some old blood but no fresh blood Vitals/I&O/Wt Last Vital Signs Temp 97.9 F 12/24/19 06:00 Pulse 82 12/24/19 06:00 Resp 18 12/24/19 06:00 BP 117/69 12/24/19 06:00 Pulse Ox 94 12/24/19 06:00 12/23/19 12/24/19 12/24/19 22:59 06:59 14:59 Intake Total 480 / 480 66 / 546 Output Total 1100 / 1100 Balance 480 / 480 -1034 / -554 Weight last 48 hrs Weight 87.498 kg Weight 85.729 kg Physical Exam Const: COMMON NORMALS: patient oriented x3 and alert GENERAL APPEARANCE: cooperative ORIENTATION/CONSCIOUSNESS: Yes awake, Yes oriented to person, Yes oriented to place and Yes oriented to time HENMT: COMMON NORMALS: normocephalic and atraumatic HEAD & SCALP: normocephalic and atraumatic Eye: COMMON NORMALS: Equal, round and reactive pupils present PUPIL: Yes Equal, round and reactive pupils present Neck/C-Spine: COMMON NORMALS: supple GENERAL: Yes normal visual inspection Resp: COMMON NORMALS: normal respiratory effort and clear to auscultation bilaterally EFFORT & INSPECTION: Yes able to speak in complete sentences AUSCULTATION: clear to auscultation bilaterally, no rhonchi and no wheezes Cardio: COMMON NORMALS: regular rate, regular rhythm and No murmurs present (Cardio) RATE: regular rate RHYTHM: regular rhythm GI: COMMON NORMALS: Soft to palpation and non-tender INSPECTION: No abdominal distension AUSCULTATION: Yes normoactive bowel sounds PALPATION: Yes Soft to palpation Extremity: COMMON NORMALS: no clubbing, cyanosis or edema and no calf tenderness Neuro: COMMON NORMALS: patient oriented x3, CN's II-XII intact bilaterally, moves all extremities and no focal motor deficits SENSORIUM/ORIENTATION: Yes alert, Yes oriented to person, Yes oriented to place and Yes oriented to time SPEECH: speech normal Psych: COMMON NORMALS: mental status grossly normal and cooperative Skin: COMMON NORMALS: no rashes or lesions noted GENERAL SKIN EXAM: no rashes or lesions noted Data : 12/24/19 06:28 12/24/19 03:26 A&P Assessment and plan (1) Rectal bleeding: Patient prepped for colonoscopy overnight with plan for colonoscopy today. Hemoglobin down trended from 11.2-9.5, type and screen performed with 1 unit of packed red blood cells ready for transfusion if indicated Episode of hypotension overnight that is now improved with IV fluids. Status: Acute (2) CAD (coronary artery disease): With a history of stent placement in 2011 Aspirin and Plavix on hold at this time due to concern for rectal bleeding as above. Continue on statin Metoprolol now on hold due to hypotension Status: Acute (3) Dyslipidemia: Continue on statin Status: Acute (4) Hypertension: With hypotensive episode overnight due to GI losses from colonoscopy prep as well as GI bleed. Hold amlodipine and metoprolol Status: Acute Additional A&P Information Colitis: Patient recently started on Cipro and Flagyl, will continue DVT prophylaxis: SCDs Diet: N.p.o. Attestations Medical Necessity Statement*: Patient requires hospitalization due to GI bleed with plan for colonoscopy today Coding Level of Care Code Acute Trolley Cleaner for Tha Garcia Diagnoses Rectal bleeding K62.5 CAD (coronary artery disease) I25.10 Dyslipidemia E78.5 Hypertension I10
[2019-12-24] MEDS: atorvastatin 40 mg Tablet 20 MG PO (09:40)
[2019-12-24] MEDS: pantoprazole DR 40 mg Tablet PO ×2 (09:40→17:47)
[2019-12-24] MEDS: ciprofloxacin 500 mg Tablet PO ×2 (09:40→17:47)
--- NOTE | 2019-12-24 10:21 | ANES.PREANE2 ---
Pre-Anesthetic Assessment Pre-Anesthetic Assessment: Height/Weight: Height 1.75 m Weight 87.498 kg Temp Pulse Resp BP Pulse Ox 97.9 F 85 16 135/80 98 12/24/19 06:00 12/24/19 08:00 12/24/19 08:00 12/24/19 08:00 12/24/19 08:00 Preop Diagnosis: gi bleed Proposed Procedure: Operation Date: 12/24/19 12:35 Proposed Procedures p Colonoscopy(Not Applicable) - Miguel A Serrano MD Familial anesthetic complications: none Was Beta Heron taken within 24 hours: N/A (holding for hypotension) Last intake: NPO > 8 hrs Social: Social History: No alcohol and No tobacco Exam: Pre-Anes Outpt Exam: alert, oriented x 3, clear to auscultation bilaterally and regular rate & rhythm Airway: Cervical ROM: WNL MP: 3 Dentition: Full Pulmonary: Pulmonary: None reported CV/HEM: CV/HEM: CAD (RCA stent 2011 - holding anticoagulants for bleeding, holding metoprolol for hypotension), HTN and SC (inferior wall SC) GI: Comments: rectal bleeding with hypotension over night and drop in hgb - no transfusion yet hgb 9.5 Metabolic: Metabolic: Hyperlipidemia Anesthetic Plan: ASA status: 3 Anesthesia: MAC Risk of > 500 ml blood loss (7ml/kg in children): No Meds/Allergies Current Medications: Current Medications Generic Name Dose Route Start Last Admin Trade Name Freq PRN Reason Stop Dose Admin Atorvastatin Calci um 20 mg 12/24/19 09:00 12/24/19 09:40 Lipitor PO 20 mg DAILY CED Administration Ciprofloxacin HCl 500 mg 12/23/19 18:00 12/24/19 09:40 Cipro PO 500 mg BID CED Administration Protocol Sodium Chloride 1,000 mls @ 150 m ls/hr 12/24/19 04:00 12/24/19 04:56 Sodium Chloride 0.9% IV 150 mls/hr .Q6H40M CED Administration Metoprolol Tartrat e 50 mg 12/23/19 12:10 12/23/19 18:15 Lopressor PO 50 mg BID CED Administration Metronidazole 500 mg 12/23/19 12:30 12/24/19 05:22 Flagyl Tab PO Not Given Q8H CED Pantoprazole Sodiu m 40 mg 12/23/19 12:10 12/24/19 09:40 Protonix PO 40 mg BID CED Administration PFSH Anesthesia PFSH: Medical History (Updated 12/23/19 @ 12:13 by Gian Landers DO) CAD (coronary artery disease) Dyslipidemia Heart attack Hypertension Old inferior wall myocardial infarction Surgical History (Updated 12/23/19 @ 11:24 by Eve Pichardo DO) History of colon surgery Reported resection of appendix and cecum due to benign changes History of coronary artery stent placement Stent placement x2 in 2011 History of orthopedic surgery Left meniscectomy, arthroscopic Hx of appendectomy S/P right coronary artery (RCA) stent placement Family History (Updated 12/23/19 @ 11:26 by Eve Pichardo DO) Mother , at the age of 99 Cancer, Onset Age: 92 Colon cancer Father , at the age of 87 Cancer, Onset Age: 70 Colon cancer Grandmother DVT (deep venous thrombosis) Social History (Updated 12/23/19 @ 11:27 by Eve Pichardo DO) Smoking and tobacco status: never smoked Alcohol intake: current Alcohol intake frequency: few times a month Household members: spouse Housing: House Highest education level completed: Professional Degree (, , JUDITH, DVM, DDS, DPM, etc) Data Anesthesia CBC & Chem 7: 12/24/19 06:28 12/24/19 03:26 Other Labs: Laboratory Results - last 48 hr 12/23/19 12/23/19 12/23/19 02:34 08:50 08:50 WBC 5.0 RBC 3.57 L Hgb 11.2 L Hct 32.6 L MCV 91.3 MCH 31.4 MCHC 34.4 RDW 13.1 Plt Count 163 MPV 10.5 H Neut % (Auto) 62.1 Lymph % (Auto) 26.5 Sherman % (Auto) 8.6 Eos % (Auto) 2.0 Baso % (Auto) 0.6 Neut # (Auto) 3.1 Lymph # (Auto) 1.3 Sherman # (Auto) 0.4 Eos # (Auto) 0.1 Baso # (Auto) 0.0 Nucleated RBC % (auto) 0 Nucleated RBCs # 0.0 PT 13.30 INR 0.98 APTT 27.7 Sodium Potassium Chloride Carbon Dioxide Anion Gap BUN Creatinine Glucose Calculated Osmolality Lactate Calcium Total Bilirubin AST ALT Alkaline Phosphatase Total Protein Albumin Globulin Lipase Urine Color Yellow Urine Appearance Clear Urine pH 5 Ur Specific Spangle 1.025 Urine Protein Neg Urine Glucose (UA) Norm Urine Ketones Negative Urine Blood Neg Urine Nitrate Negative Urine Bilirubin Neg Urine Urobilinogen Norm Ur Leukocyte Esterase Negative Blood Type Rho(D) Type Antibody Screen Crossmatch 12/23/19 12/23/19 12/23/19 08:50 08:50 09:23 WBC RBC Hgb Hct MCV MCH MCHC RDW Plt Count MPV Neut % (Auto) Lymph % (Auto) Sherman % (Auto) Eos % (Auto) Baso % (Auto) Neut # (Auto) Lymph # (Auto) Sherman # (Auto) Eos # (Auto) Baso # (Auto) Nucleated RBC % (auto) Nucleated RBCs # PT INR APTT Sodium 142 Potassium 3.7 Chloride 108 H Carbon Dioxide 24 Anion Gap 13.7 BUN 12 Creatinine 1.0 Glucose 125 H Calculated Osmolality 292 Lactate 1.3 Calcium 8.9 Total Bilirubin 0.4 AST 26 ALT 19 Alkaline Phosphatase 72 Total Protein 6.3 L Albumin 3.9 Globulin 2.4 Lipase 42 Urine Color Urine Appearance Urine pH Ur Specific Spangle Urine Protein Urine Glucose (UA) Urine Ketones Urine Blood Urine Nitrate Urine Bilirubin Urine Urobilinogen Ur Leukocyte Esterase Blood Type O Positive Rho(D) Type Positive Antibody Screen Negative Crossmatch See Detail 12/23/19 12/23/19 12/24/19 13:23 20:09 00:46 WBC RBC Hgb 10.0 L 9.3 L 10.6 L Hct 29.8 L 27.6 L 31.4 L MCV MCH MCHC RDW Plt Count MPV Neut % (Auto) Lymph % (Auto) Sherman % (Auto) Eos % (Auto) Baso % (Auto) Neut # (Auto) Lymph # (Auto) Sherman # (Auto) Eos # (Auto) Baso # (Auto) Nucleated RBC % (auto) Nucleated RBCs # PT INR APTT Sodium Potassium Chloride Carbon Dioxide Anion Gap BUN Creatinine Glucose Calculated Osmolality Lactate Calcium Total Bilirubin AST ALT Alkaline Phosphatase Total Protein Albumin Globulin Lipase Urine Color Urine Appearance Urine pH Ur Specific Spangle Urine Protein Urine Glucose (UA) Urine Ketones Urine Blood Urine Nitrate Urine Bilirubin Urine Urobilinogen Ur Leukocyte Esterase Blood Type Rho(D) Type Antibody Screen Crossmatch 12/24/19 12/24/19 12/24/19 03:26 03:26 06:28 WBC 6.6 RBC 3.17 L Hgb 9.7 L 9.5 L Hct 29.4 L 28.6 L MCV 92.7 MCH 30.6 MCHC 33.0 RDW 13.1 Plt Count 160 MPV 10.4 Neut % (Auto) 77.1 Lymph % (Auto) 13.1 Sherman % (Auto) 8.1 Eos % (Auto) 0.9 Baso % (Auto) 0.6 Neut # (Auto) 5.1 Lymph # (Auto) 0.9 Sherman # (Auto) 0.5 Eos # (Auto) 0.1 Baso # (Auto) 0.0 Nucleated RBC % (auto) 0 Nucleated RBCs # 0.0 PT INR APTT Sodium 140 Potassium 3.5 Chloride 110 H Carbon Dioxide 21 L Anion Gap 12.5 BUN 10 Creatinine 1.0 Glucose 126 H Calculated Osmolality 288 Lactate Calcium 8.6 Total Bilirubin AST ALT Alkaline Phosphatase Total Protein Albumin Globulin Lipase Urine Color Urine Appearance Urine pH Ur Specific Spangle Urine Protein Urine Glucose (UA) Urine Ketones Urine Blood Urine Nitrate Urine Bilirubin Urine Urobilinogen Ur Leukocyte Esterase Blood Type Rho(D) Type Antibody Screen Crossmatch Cardiac Studies: No Data to Display
--- NOTE | 2019-12-24 11:56 | PC.NURSE ---
TO OR pt transferred to OR for colonoscopy with OR team
--- NOTE | 2019-12-24 12:28 | PC.NURSE ---
pt back from OR.
[2019-12-24 14:33] LABS: Hematocrit 28.7 % (42.0-52.0); Hemoglobin 8.9 g/dL (11.7-16.6)
--- NOTE | 2019-12-24 16:30 | PM.CONSULT ---
Providers/Reason For Consult Consulting Physican/Specialty*: Dr. 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 Patient was observed overnight and since his hemoglobin is stable and he did not have any further episodes of bleeding he was discharged home. He presented to the ER yesterday with fresh blood per rectum and dizziness. He was admitted to the ICU for monitoring. Overnight he had a bowel prep where he had bloody bowel movements and developed hypotension and was therefore transferred to the ICU. Today he has not had any bloody bowel movements and has been hemodynamically stable. CT abdomen pelvis on previous admission showed possible colitis and therefore the plan initially was for a delayed colonoscopy but since he was readmitted, we will schedule a colonoscopy today. Review of Systems General: Reports: 10 or more systems reviewed and unremarkable except in HPI and below Meds/Allergies Home Medications and Allergies Home Medications Medication Instructions Recorded Confirmed Last Taken Type amlodipine 5 mg tablet 5 mg PO DAILY 90 Days #90 tab 09/23/19 12/23/19 12/22/19 Rx atorvastatin 20 mg tablet 20 mg PO DAILY 90 Days #90 tab 09/23/19 12/23/19 12/22/19 Rx aspirin 81 mg PO DAILY 12/21/19 12/23/19 12/20/19 History metoprolol tartrate 50 mg PO BID 12/21/19 12/23/19 12/22/19 History ciprofloxacin HCl [Cipro] 500 mg PO BID #10 tab 12/22/19 12/23/19 Unknown Rx metronidazole [Flagyl] 500 mg PO Q8H 5 Days #15 tab 12/22/19 12/23/19 Unknown Rx pantoprazole [Protonix] 40 mg PO BID 10 Days #20 tab 12/22/19 12/23/19 Unknown Rx clopidogrel 75 mg PO DAILY 12/23/19 12/23/19 12/22/19 History Allergies Allergy/AdvReac Type Severity Reaction Status Date / Time No Known Allergies Allergy Unverified 12/21/19 07:46 Current Medications Current Medications Generic Name Dose Route Start Last Admin Trade Name Freq PRN Reason Stop Dose Admin Atorvastatin Calcium 20 mg 12/24/19 09:00 12/24/19 09:40 Lipitor PO 20 mg DAILY CED Administration Ciprofloxacin HCl 500 mg 12/23/19 18:00 12/24/19 09:40 Cipro PO 500 mg BID CED Administration Protocol Sodium Chloride 1,000 mls @ 150 mls/hr 12/24/19 04:00 12/24/19 11:50 Sodium Chloride 0.9% IV 150 mls/hr .Q6H40M CED Administration Metoprolol Tartrate 50 mg 12/23/19 12:10 12/23/19 18:15 Lopressor PO 50 mg BID CED Administration Metronidazole 500 mg 12/23/19 12:30 12/24/19 16:12 Flagyl Tab PO Not Given Q8H CED Pantoprazole Sodium 40 mg 12/23/19 12:10 12/24/19 09:40 Protonix PO 40 mg BID CED Administration PFSH Acute PFSH: Medical History CAD (coronary artery disease) Dyslipidemia Heart attack Hypertension Old inferior wall myocardial infarction Surgical History History of colon surgery Reported resection of appendix and cecum due to benign changes History of coronary artery stent placement Stent placement x2 in 2011 History of orthopedic surgery Left meniscectomy, arthroscopic Hx of appendectomy S/P right coronary artery (RCA) stent placement Status post colonoscopy with polypectomy (12/24/19) diverticulosis Family History Mother , at the age of 99 Cancer, Onset Age: 92 Colon cancer Father , at the age of 87 Cancer, Onset Age: 70 Colon cancer Grandmother DVT (deep venous thrombosis) Social History Smoking and tobacco status: never smoked Alcohol intake: current Alcohol intake frequency: few times a month Household members: spouse Housing: House Highest education level completed: Professional Degree (MD, DO, JUDITH, DVM, DDS, DPM, etc) Vitals/I&O/Wt Last Vital Signs Temp 98.1 F 12/24/19 15:00 Pulse 84 12/24/19 16:00 Resp 20 H 12/24/19 16:00 BP 129/82 12/24/19 16:00 Pulse Ox 95 12/24/19 16:00 12/24/19 12/24/19 12/24/19 06:59 14:59 22:59 Intake Total 66 / 546 1000 / 1000 Output Total 1100 / 1100 650 / 650 Balance -1034 / -554 350 / 350 Weight last 48 hrs Weight 192 lb 14.4 oz Weight 189 lb Physical Exam Narrative: EXAM NARRATIVE: HEENT: Normocephalic Eye: Sclera /conjunctiva normal Abdomen: Soft to palpation Neurological: Oriented to place person and time Skin: Intact, no lesions appreciated on gross exam A&P Assessment and plan (1) Rectal bleeding: Plan for colonoscopy under MAC Procedure, risks, benefits and alternatives have been discussed with the patient who wishes to proceed with surgery. Status: Acute Coding Level of Care Code Acute Diagnostic Technician for Tha Garcia Diagnoses Rectal bleeding K62.5
--- NOTE | 2019-12-24 17:38 | PC.NURSE ---
PT TRANSFERRED TO [facility] [place] VIA WHEELCHAIR.
[2019-12-24] MEDS: metroNIDAZOLE 500 MG Tablet PO (20:10)
[2019-12-25 02:00] VITALS: BP 109/67; PULSE 80; RESP 20; TEMP 37; O2SAT 94
[2019-12-25 04:00] VITALS: BP 98/62; PULSE 82; RESP 20; TEMP 36.9; O2SAT 95
[2019-12-25] MEDS: metroNIDAZOLE 500 MG Tablet PO (05:09)
[2019-12-25 05:49] LABS: Basophils % 0.7 %; Eosinophils # 0.1 10^3/uL (0.0-0.8); Eosinophils % 2.5 %; Hematocrit 26.9 % (42.0-52.0); Hemoglobin 9.2 g/dL (11.7-16.6); Lymphocytes # 1.1 10^3/uL (0.8-4.8); Lymphocytes % 23.9 %; Mean Corpuscular HGB Conc 34.2 g/dL (30.0-36.0); Mean Corpuscular Hemoglobin 31.4 pg (28.0-34.0); Mean Corpuscular Volume 91.8 fL (80-94); Mean Platelet Volume 10.2 fL (7.4-10.4); Monocytes # 0.4 10^3/uL (0.2-0.9); Monocytes % 8.4 %; Neutrophils # 2.8 10^3/uL (1.8-7.7); Neutrophils % 64.3 %; Nucleated Red Blood Cells % 0 %; Platelet Count 158 10^3/cmm (130-400); Red Blood Count 2.93 10^6/uL (4.1-5.3); Red Cell Distribution Width 13.1 % (12.1-15.1); White Blood Count 4.4 10^3/uL (4.0-10.0)
[2019-12-25 08:00] VITALS: BP 123/73; PULSE 87; RESP 16; TEMP 36.9; O2SAT 96
[2019-12-25] MEDS: ciprofloxacin 500 mg Tablet PO (08:16)
[2019-12-25] MEDS: atorvastatin 40 mg Tablet 20 MG PO (08:16)
[2019-12-25] MEDS: pantoprazole DR 40 mg Tablet PO (08:17)
[2019-12-25 10:00] VITALS: BP 111/66; PULSE 70; RESP 16; TEMP 36.4; O2SAT 94
--- NOTE | 2019-12-25 11:11 | PM.DCS ---
Discharge Providers Date of Admission: 12/24/19 18:41 Date of Discharge: December 25, 2019 Attending Provider at Admission: Eve Pichardo DO Attending Provider at Discharge: Eve Pichardo DO Primary Care Provider: DOCTOR NOT ON FILE Diagnoses at Discharge Discharge Diagnosis (1) Rectal bleeding: Status: Acute Problem details: Secondary to diverticular bleed Reason for Visit Reason for Visit: Reason For Visit: RECTAL BLEEDING Hospital Course Hospital Course: Patient was seen and evaluated in the emergency department noted to have concern for rectal bleeding. He was admitted to the hospital and monitored closely due to continued episodes. His hemoglobin was monitored serially and he did have a decrease in his hemoglobin from 11.2 down to 8.9. General surgeon, Dr. Serrano was consulted for colonoscopy. Patient was prepped for colonoscopy, during prep he did have some continued hematochezia and due to GI losses from colonoscopy prep he became hypotensive and required IV fluids. He was transferred to the ICU due to his hypotensive episode. This resolved with administration of IV fluid bolus. He was kept on maintenance fluids and prepped for colonoscopy. During colonoscopy there was no evidence of any active bleeding and he was noted to have concern for diverticular bleed. No other masses or lesions noted. Patient was monitored closely with no further hematochezia, hemoglobin actually improved to 9.2 and patient was transferred out of the ICU to the medical floor. He blood pressure remained stable and no tachycardia noted. Patient reported on date of discharge that he was feeling well, no abdominal pain, had continued to pass flatus with no continued bleeding. Discussed with patient concern for diverticular bleed that may wax and wane but should continue to improve being off of aspirin and Plavix. Discussed with patient increase to GI soft diet with plan to discharge to home if continuing to do well today, he verbalized understanding and agreed with plan. Physical Exam Const: COMMON NORMALS: patient oriented x3 and alert GENERAL APPEARANCE: cooperative ORIENTATION/CONSCIOUSNESS: Yes awake, Yes oriented to person, Yes oriented to place and Yes oriented to time HENMT: COMMON NORMALS: normocephalic and atraumatic HEAD & SCALP: normocephalic and atraumatic Neck/C-Spine: COMMON NORMALS: supple GENERAL: Yes normal visual inspection Resp: COMMON NORMALS: normal respiratory effort and clear to auscultation bilaterally EFFORT & INSPECTION: Yes able to speak in complete sentences AUSCULTATION: clear to auscultation bilaterally, no rhonchi and no wheezes Cardio: COMMON NORMALS: regular rate, regular rhythm and No murmurs present (Cardio) RATE: regular rate RHYTHM: regular rhythm GI: COMMON NORMALS: Soft to palpation and non-tender INSPECTION: No abdominal distension AUSCULTATION: Yes normoactive bowel sounds PALPATION: Yes Soft to palpation Neuro: COMMON NORMALS: patient oriented x3, CN's II-XII intact bilaterally, moves all extremities and no focal motor deficits SENSORIUM/ORIENTATION: Yes alert, Yes oriented to person, Yes oriented to place and Yes oriented to time SPEECH: speech normal Psych: COMMON NORMALS: mental status grossly normal and cooperative Discharge Data Data Completed and Pending: Pending at discharge Category Date Time Status Leukocyte Reduced RBC Stat Lab 12/24/19 03:58 Results Type and Screen S tat Lab 12/23/19 08:50 Results Labs from last 24 hours 12/25/19 12/24/19 05:24 13:06 WBC 4.4 RBC 2.93 L Hgb 9.2 L 8.9 L Hct 26.9 L 28.7 L MCV 91.8 MCH 31.4 MCHC 34.2 RDW 13.1 Plt Count 158 MPV 10.2 Neut % (Auto) 64.3 Lymph % (Auto) 23.9 [place] % (Auto) 8.4 Eos % (Auto) 2.5 Baso % (Auto) 0.7 Neut # (Auto) 2.8 Lymph # (Auto) 1.1 [place] # (Auto) 0.4 Eos # (Auto) 0.1 Baso # (Auto) 0.0 Nucleated RBC % (a uto) 0 Nucleated RBCs # 0.0 Vitals: Last Vital Signs Temp 97.6 F 12/25/19 10:00 Pulse 70 12/25/19 10:00 Resp 16 12/25/19 10:00 BP 111/66 12/25/19 10:00 Pulse Ox 94 12/25/19 10:00 Discharge Plan Discharge Patient Disposition: Home, Self-Care Condition: Stable Prescriptions: Continued atorvastatin 20 mg tablet 20 mg PO DAILY 90 Days Qty: 90 RF: 3 Changed pantoprazole [Protonix] 40 mg tablet,delayed release (DR/EC) 40 mg PO DAILY 10 Days Qty: 20 RF: 0 Held amlodipine 5 mg tablet 5 mg PO DAILY 90 Days Qty: 90 RF: 3 Hold Instructions: Resume on 01/04/20. If blood pressures more than systolic 140/80. aspirin 81 mg Tablet,Delayed Release (Dr/Ec) 81 mg PO DAILY RF: 0 Hold Instructions: Resume on 01/01/20. metoprolol tartrate 25 mg tablet 50 mg PO BID RF: 0 Hold Instructions: Resume on 01/07/20. Discontinued ciprofloxacin HCl [Cipro] 500 mg tablet 500 mg PO BID Qty: 10 RF: 0 metronidazole [Flagyl] 500 mg tablet 500 mg PO Q8H 5 Days Qty: 15 RF: 0 clopidogrel 75 mg Tablet 75 mg PO DAILY RF: 0 Discharge Orders: Discharge Order (Routine); Ordered 12/25/19 Ordered By: Eve Pichardo Referrals: Miguel A Serrano MD [Physician] - (Follow-up on an as-needed basis) Discharge Diet: Advance as tolerated and Cardiac Discharge Activity: Increase activity as tolerated Activity Restrictions/Additional Instructions: Admitted for hematochezia, rectal bleeding, this is secondary to diverticular bleeding. Continue to hold off on aspirin and Plavix at this time. Will need to follow-up with primary care provider and consider restarting aspirin in 1 to 2 months if indicated. Would recommend holding off on Plavix at this time. With diverticuli continue to ensure soft bowel movements daily, using [id number] fiber supplementation will help with this. Eend-[id number] stool softener as needed. Blood pressures were low due to bleeding and GI loss from colonoscopy preparation, continue to hold off on amlodipine and metoprolol at this time. Restart metoprolol in 1 to 2 weeks if indicated, this is to be determined by your primary care provider at time of follow-up Cipro and Flagyl have been discontinued, no evidence of colitis or inflammatory process on colonoscopy Protonix was initially started at twice a day dosing, due to no concern for upper GI bleed this was decreased to once daily dosing Follow-up with your primary care provider in 5 to 7 days Follow-up with Dr. Serrano on an as-needed basis Your hemoglobin is lower than baseline due to these episodes of bleeding. Hemoglobin at 9.2 on date of discharge, this will take some time to continue to improve. Call your physician or present to the ED for any acute illness or concern. Discharge Attestations Time Spent in Discharge Care*: greater than 30 min Status at Discharge: Cognitive status at discharge: cognitively intact, Behavioral status at discharge: cooperative, Quality Metrics Clinical Quality Measures During this hospital stay, did patient experience: None Coding Level of Care Code Acute Ophthalmic Medical Technologist for Chg Fwd Diagnoses Rectal bleeding K62.5
[2019-12-25 11:40] VITALS: BP 113/69; PULSE 78; RESP 18; TEMP 36.9; O2SAT 94
[2019-12-25 13:45] VITALS: BP 113/69; PULSE 78; RESP 18; TEMP 36.9; O2SAT 94
== END 2019-12-25 14:40 | disposition home or self-care (01) | DRG 379 ==
LOC: ER 11:42 → MEDSURG 11:49 → ICU 12-24 06:19 → MEDSURG 12-24 17:41
PROVIDERS: Family Medicine; Student in an Organized Health Care Education/Training Program; Surgery; Admitting Provider Family Medicine; Visit Provider Family Medicine
PROC: 0DJD8ZZ Inspection of Lower Intestinal Tract, Via Natural or Artificial Opening Endoscopic (ICD-10-PCS; CPT 45378; principal; 2019-12-24 12:30)
DX: K57.31 Diverticulosis of large intestine without perforation or abscess with bleeding (principal); Z80.0 Family history of malignant neoplasm of digestive organs; I25.10 Atherosclerotic heart disease of native coronary artery without angina pectoris; Z95.5 Presence of coronary angioplasty implant and graft; E78.5 Hyperlipidemia, unspecified; I25.2 Old myocardial infarction; I10 Essential (primary) hypertension; I95.9 Hypotension, unspecified
CPT/HCPCS: 12345; 36415; 45378; 80048; 80053; 81003; 83605; 83690; 85014; 85018; 85025; 85610; 85730; 86850; 86900; 86920; 93005; 99283; G0378; J2704; J3490; J7030

== ENCOUNTER 2025-06-23 07:48 | Oncology outpatient (recurring) (ONCR) | payer MEDICARE, OTHER, SELFPAY | END 2025-07-05 23:59 | disposition home or self-care (01) | PROVIDERS: Visit Provider Internal Medicine Medical Oncology | DX: Z53.9 Procedure and treatment not carried out, unspecified reason; C67.9 Malignant neoplasm of bladder, unspecified; R59.0 Localized enlarged lymph nodes; R19.09 Other intra-abdominal and pelvic swelling, mass and lump; N28.9 Disorder of kidney and ureter, unspecified; N13.30 Unspecified hydronephrosis | CPT/HCPCS: 99205 ==

== ENCOUNTER 2025-07-27 07:30 | Oncology outpatient (recurring) (ONCR) | payer MEDICARE, OTHER, SELFPAY ==
[2025-07-14 11:24] LABS: Hematocrit 38.4 % (37-53); Hemoglobin 12.80 g/dL (11.27-16.99); Mean Corpuscular HGB Conc 33.3 g/dL (30-55); Mean Corpuscular Hemoglobin 30.3 pg (27-33); Mean Corpuscular Volume 90.8 fl (82-101); Nucleated Red Blood Cells % 0 %; Platelet Count 174 10^3/cmm (157-399); Red Blood Count 4.23 10^6/uL (3.85-5.65); White Blood Count 5.70 10^3/uL (3.29-11.43)
[2025-07-14 11:50] LABS: Alanine Aminotransferase 18 U/L (0-41); Albumin Level 4.0 g/dL (3.5-5.2); Alkaline Phosphatase 91 U/L (40-130); Anion Gap 12.0 (5-19); Aspartate Amino Transferase 20 U/L (0-40); Blood Urea Nitrogen 25 mg/dL (8-23); Calcium 8.6 mg/dL (8.5-10.5); Carbon Dioxide 27 mmol/L (22-29); Chloride 105 mmol/L (98-107); Globulin 2.7 g/dL (1.3-4.6); Glucose 97 mg/dL (65-115); Osmolality Calculated 294 mOsm/kg (285-295); Potassium 4.0 mmol/L (3.5-5.1); Sodium 140 mmol/L (136-145); Total Protein 6.7 g/dL (6.6-8.7)
[2025-07-27 08:04] LABS: Hematocrit 40.4 % (37-53); Hemoglobin 13.90 g/dL (11.27-16.99); Mean Corpuscular HGB Conc 34.4 g/dL (30-55); Mean Corpuscular Hemoglobin 30.1 pg (27-33); Mean Corpuscular Volume 87.4 fl (82-101); Nucleated Red Blood Cells % 0 %; Platelet Count 181 10^3/cmm (157-399); Red Blood Count 4.62 10^6/uL (3.85-5.65); White Blood Count 5.68 10^3/uL (3.29-11.43)
[2025-07-27 08:23] LABS: Alanine Aminotransferase 19 U/L (0-41); Albumin Level 4.1 g/dL (3.5-5.2); Alkaline Phosphatase 92 U/L (40-130); Anion Gap 14.8 (5-19); Aspartate Amino Transferase 21 U/L (0-40); Blood Urea Nitrogen 26 mg/dL (8-23); Calcium 9.2 mg/dL (8.5-10.5); Carbon Dioxide 24 mmol/L (22-29); Chloride 104 mmol/L (98-107); Cholesterol 165 mg/dL (0-200); Globulin 2.6 g/dL (1.3-4.6); Glucose 153 mg/dL (65-115); HDL Cholesterol 40 mg/dL (60-100); Osmolality Calculated 296 mOsm/kg (285-295); Potassium 3.8 mmol/L (3.5-5.1); Sodium 139 mmol/L (136-145); Total Protein 6.7 g/dL (6.6-8.7); Triglycerides 169 mg/dL (0-150)
[2025-07-27] MEDS: dexamethasone 4 mg/mL INJ 5 mL 12 MG IVP (09:31)
[2025-07-27] MEDS: ondansetron 2 mg/ML SDV 2 mL 8 MG IVP (09:31)
[2025-07-27] MEDS: pembrolizumab 200 MG in sodium chloride 0.9% 250 ML 516 MG IV (09:56)
[2025-07-27 11:15] VITALS: BP 124/68; PULSE 62; RESP 17; TEMP 36.6; O2SAT 97
== END 2025-07-27 23:59 | disposition home or self-care (01) ==
PROVIDERS: Visit Provider Internal Medicine Medical Oncology
DX: Z53.9 Procedure and treatment not carried out, unspecified reason; Z51.12 Encounter for antineoplastic immunotherapy; C67.9 Malignant neoplasm of bladder, unspecified; Z79.899 Other long term (current) drug therapy; N28.9 Disorder of kidney and ureter, unspecified; N13.30 Unspecified hydronephrosis
CPT/HCPCS: 36415; 80053; 80061; 85025; 96367; 96375; 96413; 99214; 99215; J1100; J2405; J3490; J7050; J9177; J9271; J9999

== ENCOUNTER 2025-08-04 07:37 | Oncology outpatient (recurring) (ONCR) | payer MEDICARE, SELFPAY ==
[2025-08-04 08:08] LABS: Hematocrit 42.6 % (37-53); Hemoglobin 14.50 g/dL (11.27-16.99); Mean Corpuscular HGB Conc 34.0 g/dL (30-55); Mean Corpuscular Hemoglobin 30.2 pg (27-33); Mean Corpuscular Volume 88.8 fl (82-101); Nucleated Red Blood Cells % 0 %; Platelet Count 160 10^3/cmm (157-399); Red Blood Count 4.80 10^6/uL (3.85-5.65); White Blood Count 5.59 10^3/uL (3.29-11.43)
[2025-08-04 08:27] LABS: Alanine Aminotransferase 48 U/L (0-41); Albumin Level 4.2 g/dL (3.5-5.2); Alkaline Phosphatase 103 U/L (40-130); Anion Gap 16.8 (5-19); Aspartate Amino Transferase 40 U/L (0-40); Blood Urea Nitrogen 24 mg/dL (8-23); Calcium 9.0 mg/dL (8.5-10.5); Carbon Dioxide 25 mmol/L (22-29); Chloride 101 mmol/L (98-107); Globulin 2.8 g/dL (1.3-4.6); Glucose 184 mg/dL (65-115); Osmolality Calculated 297 mOsm/kg (285-295); Potassium 3.8 mmol/L (3.5-5.1); Sodium 139 mmol/L (136-145); Total Protein 7.0 g/dL (6.6-8.7)
[2025-08-04] MEDS: dexamethasone 4 mg/mL INJ 5 mL 12 MG IVP (09:18)
[2025-08-04 11:14] VITALS: BP 123/83; PULSE 68; RESP 16; TEMP 36
== END 2025-08-04 23:59 | disposition home or self-care (01) ==
PROVIDERS: Visit Provider Nurse Practitioner
DX: Z51.11 Encounter for antineoplastic chemotherapy (principal); C67.9 Malignant neoplasm of bladder, unspecified; N28.9 Disorder of kidney and ureter, unspecified; R19.09 Other intra-abdominal and pelvic swelling, mass and lump; R59.0 Localized enlarged lymph nodes; N13.30 Unspecified hydronephrosis; Z79.899 Other long term (current) drug therapy; Z96.89 Presence of other specified functional implants; Z79.52 Long term (current) use of systemic steroids; Z53.9 Procedure and treatment not carried out, unspecified reason
CPT/HCPCS: 80053; 85025; 96375; 96413; 99214; J1100; J2469; J3490; J7050; J9177; J9999